=== PATIENT | male | born 1960 | race Caucasian/White ===

== ENCOUNTER 2019-08-02 14:32 | Outpatient (CLI) | payer OTHER, SELFPAY ==
--- NOTE | 2019-08-02 14:23 | DI.RAD_ITS ---
EXAM: XR FINGER LT INDEX CLINICAL HISTORY: eval L index finger volar mass TECHNIQUE: COMPARISON: No exams were available for comparison FINDINGS: Three views were obtained. There is an apparent soft tissue mass or swelling on the volar aspect of the index finger at the level of the middle phalanx. No underlying bony abnormality seen. No calcif ication seen. Additional evaluation with MRI may be indicated if there is clinical suspicion of a mass. IMPRESSION:
== END 2019-08-02 14:52 ==
PROVIDERS: PCP Nurse Practitioner Family; Visit Provider Student in an Organized Health Care Education/Training Program
DX: R22.32 Localized swelling, mass and lump, left upper limb (principal); M79.89 Other specified soft tissue disorders
CPT/HCPCS: 73140

== ENCOUNTER 2019-08-17 08:44 | Day surgery (SDC) | payer OTHER, SELFPAY ==
[2019-08-17 08:58] VITALS: BP 136/92; PULSE 73; RESP 16; TEMP 36.5; O2SAT 95
[2019-08-17] MEDS: Sodium Bicarbonate 50 MEQ/50 ML SYR (11:14)
[2019-08-17] MEDS: Lidocaine 1% Pres-Free 5 ML VIAL (11:14)
--- NOTE | 2019-08-17 11:20 | SKI_PTH ---
PATIENT: Sanchez Osborn LOC: [facility] U#:[id number] AGE/SX: 58/M ROOM: RE08/17/[address]: Maximiliano New MD : 1960 BED: DIS: 08/17/2019 SPEC #: [id number] RECD: 08/17/19 12:34 STATUS: [place] REQ #: [id number] LON: 08/17/19 11:[address]: Maximiliano New DEPT: Surgical Specimen RECD BY: Stefany Alatorre ENTERED: 08/17/19 12:35 SP TYPE: SKI OT DR: Jenniffer Gill Tissues: 1 - SKIN BIOPSY(SHAVE/PUNCH) Procedures: GROSS AND MICRO LEVEL 3 Comments: [id number]
--- NOTE | 2019-08-17 11:35 | W.PM.DSUDISC ---
Discharge Plan Disposition Patient Disposition: HOME Condition: Good Discharge Details Reason For Visit: Left Index Finger Mass Attending Provider: Maximiliano New Primary Care Provider: Jenniffer Gill Home Meds and New Rx's Prescriptions: New hydrocodone-acetaminophen 5-325 mg tablet 1 tab PO Q8H PRN PRN (Reason: pain) Qty: 3 RF: 0 acetaminophen 500 mg tablet 1,000 mg PO Q8H PRN (Reason: pain) Qty: 60 RF: 3 ibuprofen 600 mg tablet 600 mg PO TID PRNQty: 30 RF: 3 Continued aspirin [Aspir-81] 81 MG tablet,delayed release (DR/EC) 81 mg PO DAILY RF: 0 lisinopril 10 MG tablet 15 mg PO DAILY RF: 0 pravastatin 10 MG tablet 10 mg PO DAILY RF: 0 cholecalciferol (vitamin D3) [Vitamin D3] 2,000 unit Tablet 1,000 unit PO DAILY RF: 0 Discharge Instructions Additional Instructions: Activity: You may use your fingers for light activity but avoid direct contact to the index finger. You should limit any excessive motion or forceful gripping with the index finger until the sutures have been removed. Dressings: You should keep the initial surgical dressing in place for at least 2 days. You may remove your dressings and get the wound wet after 2 days. You should keep the dressings and the wound clean at all times. You can replace the initial dressing with light gauze or a bandaid. It is not uncommon to see some bleeding on the initial dressing. Medications: - You should take Tylenol and Ibuprofen around the clock as prescribed or per practice professional's recommendations. - You have Hydrocodone prescribed for breakthrough pain control. Take only as needed and limit use as much as possible. This may cause constipation. Follow-up: 7-10 days for wound check and suture removal. Referrals: Maximiliano New MD [ [facility] STAFF PHYSICIAN] - Activity:: Elevate Remove Dressings/Wound Care:: 48 hours Shower/Bathe:: 48 hours Diet:: As Tolerated Discharge Orders Discharge Orders: Discharge Order (Routine); Ordered 08/17/19 Ordered By: Maximiliano New DS: Diagnosis Discharge Diagnosis (1) Finger mass, left: Status: Acute
--- NOTE | 2019-08-18 19:57 | W.PM.OP ---
Date of service: 08/17/19 Time of Service: 14:58 Operative Note Operative Note DATE OF PROCEDURE: 08/17/19 PRE-OP DIAGNOSIS: Left Index Finger Mass POST-OP DIAGNOSIS: same PROCEDURE: Excisional Biopsy of Left Index Finger Mass SURGEON: Maximiliano New ANESTHESIA: local ESTIMATED BLOOD LOSS: 0 PATHOLOGY: none sent COMPLICATIONS: None Patient was transported to: same day Patient's condition: stable Indications: I have seen Sanchez in clinic for a mass of the palmar left index finger. It continues to interfere with daily activities and making a fist and he desired it removed. I discussed excisional biopsy with the patient. I reviewed the risks of the procedure to include, but not limited to, bleeding, infection, pain, stiffness, need for repeat surgery, damage to nerves or vessels. Despite these risks, the patient elected to proceed. Findings: There was a well encapsulated mass palmar to the tendon without any aggressive features. Preliminarily appears like an epidermoid cyst. Procedure Description: Sanchez was greeted in the preoperative holding area where the correct side was identified and marked. The consent was reviewed with the patient and signed. All questions were answered. Sanchez was taken back to the operating room. The patient was placed into the supine position on the operating room table with the left arm on an arm board. All bony prominences were well padded. No prophylactic antibiotics were administered since this was a clean, elective hand surgical case. The left arm was then prepped with Chloraprep and draped in a standard fashion with stockinette and extremity drape. A timeout to confirm correct identity, side and site, procedure, allergies, anesthesia, and medical concerns was performed. The surgical site was marked as a longitudinal incision angled from PIP to DIP flexion crease directly over the mass of the involved digit. The finger was then anesthetized with 1% Lidocaine buffered with sodium bicarbonate. The patient tolerated this well and once the anesthetic had setup, the procedure began. An incision was made through skin only, approximately 1.5cm. The deep tissues were dissected bluntly. The cyst was evident at this point. There is a clear white membrane. This was dissected out with minimal effort was able to be expressed from the wound. There is no notable attachments to any of the surrounding tissues. There is a small amount of white chalky material within it, indicative of an epidermoid cyst. The wound was then irrigated and the skin was closed with a 4-0 Nylon. This was dressed with tube gauze dressing. The patient tolerated the procedure well and was returned to the Same Day Surgery area in a stable condition suffering no known complication. The mass was sent to pathology for evaluation.
== END 2019-08-17 11:50 | disposition home or self-care (01) ==
PROVIDERS: PCP Nurse Practitioner Family; Visit Provider Student in an Organized Health Care Education/Training Program
PROC: (CPT 11422; principal; 2019-08-17 11:15)
DX: L72.0 Epidermal cyst (principal)
CPT/HCPCS: 11422; 88304; 88305

== ENCOUNTER 2020-02-08 14:10 | Outpatient (REF) | payer OTHER, SELFPAY ==
[2020-02-10 19:20] LABS: SARS-CoV-2 RNA Undetected (Undetected); SARS-CoV-2 Specimen Source Nasopharynx
== END 2020-02-08 14:30 ==
LOC: NCHCN 14:10
PROVIDERS: PCP Nurse Practitioner Family; Visit Provider Nurse Practitioner Family
DX: Z11.59 Encounter for screening for other viral diseases (principal)
CPT/HCPCS: U0003

== ENCOUNTER 2020-02-11 11:28 | Outpatient (REF) | payer OTHER, SELFPAY ==
[2020-02-11 19:45] LABS: ALT 45 U/L (16-63); AST 25 U/L (15-37); Albumin 4.5 g/dL (3.4-5.0); Alkaline Phosphatase 53 U/L (46-116); Anion Gap 11.1 mmol/L (3-11); BUN 25 mg/dL (7-18); Bilirubin, Total 0.6 mg/dL (0.2-1.0); CO2 23.9 mmol/L (21.0-32.0); CREATININE 1.18 mg/dL (0.70-1.30); Calcium 9.1 mg/dL (8.5-10.1); Calculated LDL 104 mg/dL (<100); Chloride 105 mmol/L (98-107); Cholesterol 175 mg/dL (<200); Glucose 107 mg/dL (74-106); HDL Cholesterol 53 mg/dL (40-60); Potassium 3.9 mmol/L (3.5-5.1); Sodium 140 mmol/L (136-145); Total Protein 7.4 g/dL (6.4-8.2); Triglyceride 92 mg/dL (<150)
== END 2020-02-11 11:48 ==
LOC: NCHCN 11:28
PROVIDERS: PCP Nurse Practitioner Family; Visit Provider Nurse Practitioner Family
DX: E55.9 Vitamin D deficiency, unspecified (principal); E78.00 Pure hypercholesterolemia, unspecified; I10 Essential (primary) hypertension; Z00.00 Encounter for general adult medical examination without abnormal findings
CPT/HCPCS: 80053; 80061

== ENCOUNTER 2020-02-21 09:59 | Outpatient (REF) | payer OTHER, SELFPAY ==
[2020-02-22 17:39] LABS: PSA, Screening 0.6 ng/mL (0.0-3.5)
[2020-02-28 12:08] LABS: Testosterone, Free 13.7 ng/dL (3.87-14.7); Testosterone, Total 474 ng/dL (240-950)
== END 2020-02-21 10:19 ==
LOC: NCHCN 09:59
PROVIDERS: PCP Nurse Practitioner Family; Visit Provider Nurse Practitioner Family
DX: N52.9 Male erectile dysfunction, unspecified (principal); Z12.5 Encounter for screening for malignant neoplasm of prostate
CPT/HCPCS: 84153; 84402; 84403

== ENCOUNTER 2020-03-13 12:12 | Outpatient (REF) | payer OTHER, SELFPAY ==
--- NOTE | 2020-03-13 12:02 | SKI_PTH ---
PATIENT: Sanchez Osborn LOC: [facility] U#:[id number] AGE/SX: 59/M ROOM: RE03/13/[address]: Vinh Rice DO : 1960 BED: DIS: 03/13/2020 SPEC #: [id number] RECD: 03/14/20 08:59 STATUS: [place] REQ #: [id number] LON: 03/13/20 12:[address]: Vinh Rice DEPT: Surgical Specimen RECD BY: Jeane Perera ENTERED: 03/14/20 09:01 SP TYPE: SKI OTHR DR: Jenniffer Gill Tissues: 1 - SKIN BIOPSY(SHAVE/PUNCH) Procedures: SKIN LEVEL 4 Comments: [id number]
== END 2020-03-13 12:32 ==
LOC: LBN 12:12
PROVIDERS: PCP Nurse Practitioner Family; Visit Provider Otolaryngology Otolaryngology/Facial Plastic Surgery
DX: L81.4 Other melanin hyperpigmentation (principal); L82.1 Other seborrheic keratosis
CPT/HCPCS: 88305

== ENCOUNTER 2020-11-02 16:51 | Outpatient (REF) | payer OTHER, SELFPAY ==
[2020-11-02 15:50] LABS: HCT 42.8 % (40.0-50.0); HGB 14.7 g/dL (13.5-17.5); MCH 32.1 pg (27.0-33.0); MCHC 34.3 % (32.0-36.0); MCV 93.4 fL (80-95); MPV 11.9 fL (8.0-11.0); Platelet Count 152 10^3/uL (130-400); RBC 4.58 10^6/uL (4.36-5.78); RDW 12.2 % (11.8-14.1); RDW-SD 42.4 fL; WBC 6.02 10^3/uL (4.4-10.8)
[2020-11-02 16:22] LABS: Hemoglobin A1C 5.6 % (<5.7)
[2020-11-02 16:25] LABS: ALT 45 U/L (16-63); AST 22 U/L (15-37); Anion Gap 9.7 mmol/L (3-11); BUN 26 mg/dL (7-18); CO2 27.3 mmol/L (21.0-32.0); CREATININE 1.3 mg/dL (0.70-1.30); Calcium 8.5 mg/dL (8.5-10.1); Calculated LDL 85 mg/dL (<100); Chloride 103 mmol/L (98-107); Cholesterol 170 mg/dL (<200); Glucose 110 mg/dL (74-106); HDL Cholesterol 50 mg/dL (40-60); Potassium 4.1 mmol/L (3.5-5.1); Sodium 140 mmol/L (136-145); TSH 1.78 uIU/mL (0.36-3.74); Triglyceride 178 mg/dL (<150)
[2020-11-02 16:39] LABS: Creatine Kinase 320 U/L (39-308)
== END 2020-11-02 16:52 | disposition home or self-care (01) ==
LOC: NCHCN 16:51
PROVIDERS: PCP Nurse Practitioner Family; Visit Provider Nurse Practitioner Family
DX: R73.03 Prediabetes (principal); I10 Essential (primary) hypertension; R63.5 Abnormal weight gain; E78.00 Pure hypercholesterolemia, unspecified
CPT/HCPCS: 80048; 80061; 82550; 85027; 83036; 84443; 84450; 84460

== ENCOUNTER 2021-05-02 07:53 | Outpatient (REF) | payer OTHER, SELFPAY ==
[2021-05-02 20:29] LABS: Hemoglobin A1C 5.6 % (<5.7)
[2021-05-02 20:30] LABS: Creatine Kinase 312 U/L (39-308)
== END 2021-05-02 07:54 | disposition home or self-care (01) ==
LOC: NCHCN 07:53
PROVIDERS: PCP Nurse Practitioner Family; Visit Provider Nurse Practitioner Family
DX: I10 Essential (primary) hypertension (principal); E78.00 Pure hypercholesterolemia, unspecified; R73.03 Prediabetes
CPT/HCPCS: 82550; 83036

== ENCOUNTER 2022-03-19 15:48 | Outpatient (REF) | payer OTHER, SELFPAY ==
[2022-03-19 15:57] LABS: Anion Gap 9.3 mmol/L (3-11); BUN 24 mg/dL (7-18); CO2 28.7 mmol/L (21.0-32.0); CREATININE 1.2 mg/dL (0.70-1.30); Calcium 9.1 mg/dL (8.5-10.1); Calculated LDL 116 mg/dL (<100); Chloride 102 mmol/L (98-107); Cholesterol 184 mg/dL (<200); Estimated GFR 69.23 (mL/min/1.73m2); Glucose 105 mg/dL (74-106); HDL Cholesterol 52 mg/dL (40-60); Potassium 4.1 mmol/L (3.5-5.1); Sodium 140 mmol/L (136-145); Triglyceride 80 mg/dL (<150)
== END 2022-03-19 15:49 | disposition home or self-care (01) ==
LOC: NCHCN 15:48
PROVIDERS: PCP Nurse Practitioner Family; Visit Provider Nurse Practitioner Family
DX: I10 Essential (primary) hypertension (principal); E78.00 Pure hypercholesterolemia, unspecified; R20.2 Paresthesia of skin
CPT/HCPCS: 80048; 80061

== ENCOUNTER 2023-04-09 09:34 | Outpatient (REF) | payer MEDICAID, SELFPAY ==
[2023-04-09 16:08] LABS: BUN 28 mg/dL (7-18); CREATININE 1.2 mg/dL (0.70-1.30); Calcium 9.1 mg/dL (8.5-10.1); Calculated LDL 123 mg/dL (<100); Chloride 104 mmol/L (98-107); Cholesterol 195 mg/dL (<200); Glucose 110 mg/dL (74-106); HDL Cholesterol 63 mg/dL (40-60); Potassium 4.2 mmol/L (3.5-5.1); Sodium 139 mmol/L (136-145); Triglyceride 45 mg/dL (<150)
[2023-04-09 16:20] LABS: Hemoglobin A1C 5.3 % (<5.7)
== END 2023-04-09 09:35 | disposition home or self-care (01) ==
LOC: NCHCN 09:34
PROVIDERS: PCP Nurse Practitioner Family; Visit Provider Nurse Practitioner Family
DX: R73.03 Prediabetes (principal); I10 Essential (primary) hypertension; E78.00 Pure hypercholesterolemia, unspecified
CPT/HCPCS: 80048; 80061; 83036

== ENCOUNTER 2023-07-30 07:39 | Day surgery (SDC) | payer OTHER, SELFPAY ==
[2023-07-30 08:04] VITALS: BP 136/87; PULSE 75; RESP 16; TEMP 36.5; O2SAT 93
[2023-07-30] MEDS: Lactated Ringers 1,000 ML 80 ML IV (08:34)
--- NOTE | 2023-07-30 08:36 | ANES.PREOP_ITS ---
General Info Date of Service Date Performed: 07/30/23 Height: 5 ft 4 in Weight: 84 kg Body Mass Index (BMI): 31.8 Surgical Procedure: Operation Date: 07/30/23 09:50 Proposed Procedure Side Surgeon miryam Tan MD Meds Allergies and Home Medications Allergies Allergy/AdvReac Type Severity Reaction Status Date / Time No Known Allergies Allergy Verified 07/30/23 08:03 Home Medication Medication Instructions Recorded cholecalciferol (vitamin D3) 50 1,000 unit PO DAILY 08/17/19 mcg (2,000 unit) tablet (Vitamin D3) lisinopril 20 1 tab PO DAILY 07/03/20 mg-hydrochlorothiazide 12.5 mg tablet bimatoprost 0.01 % eye drops 1 drp ophthalmic (eye) DAILY 04/29/23 (Lumigan) fluticasone propionate 50 1 spray intranasal DAILY 04/29/23 mcg/actuation nasal spray,suspension sildenafil 100 mg tablet 100 mg PO DAILY PRN 04/29/23 Current Visit Medications: Current Medications Generic Name Dose Route Start Last Admin Trade Name Freq PRN Reason Stop Dose Admin Ringer's Solution 1,000 mls @ 80 mls/hr 07/30/23 06:00 07/30/23 08:34 IV 08/28/23 23:59 80 mls/hr INFUSION HERBIE Administration IV Miscellaneous Supplies 1 each 07/30/23 06:00 Iv Access IV 08/28/23 23:59 DIRECTED HERBIE Sodium Chloride 0 ml 07/30/23 06:00 Normal Saline Flush 10 Ml Syr IV 08/28/23 23:59 PRN PRN Sodium Chloride 0 ml 07/30/23 06:00 Normal Saline 10 Ml Vial IJ 08/28/23 23:59 DIRECTED PRN Sterile Water 0 ml 07/30/23 06:00 Water,Injection,Sterile 10 Ml Vial IJ 08/28/23 23:59 DIRECTED PRN PFSH Active Problems Active Problems: Problem Status Onset Code Essential tremor G25.0 Carpal tunnel syndrome of left wrist G56.02 Carpal tunnel syndrome of right wrist G56.01 Hypertension, benign I10 Neoplasm of unspecified behavior of bone, soft tissue, and skin D49.2 Epidermoid cyst of finger of left hand L72.0 Finger mass, left R22.32 Medical History Medical History (Updated 07/29/23 @ 12:20 by Preston Saleem) Traumatic intracranial hemorrhage ??? 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 17 but not clear that he had intracranial hemorrhage- I smacked my head off the pavement, and a crushed artery_not required to see neuro History of prediabetes Seasonal allergies Low back pain Obstructive sleep apnea of adult Glaucoma Depression Vitamin D deficiency Melanosis coli Disorder of tendon of biceps Erectile dysfunction Hypercholesterolemia Prediabetes Hypertension Surgical History Surgical History No pertinent past surgical history Tobacco Smoking/Tobacco Use Status: Never Alcohol Alcohol Intake: current Alcohol intake frequency: 0-2 drinks per day Alcohol type: wine Substance Use Substance use: Occasionally Substance use type: marijuana Vital Signs and Lab Results Vital Signs Most Recent Vital Signs in EMR: Most Recent Vital Signs Temp Pulse Resp BP Pulse Ox 36.5 C 75 16 136/87 93 07/30/23 08:04 07/30/23 08:04 07/30/23 08:04 07/30/23 08:04 07/30/23 08:04 Lab Results Blood Type / Crossmatch: No Data to Display Complete Blood Count: No Data to Display Complete Metabolic Panel: No Data to Display Liver Function Panel: No Data to Display Coagulation Panel: No Data to Display Cardiac Panel: No Data to Display Arterial Blood Gas: No Data to Display Venous Blood Gas: No Data to Display Pancreas Panel: No Data to Display Thyroid Panel: No Data to Display Infectious Disease: No Data to Display Blood Cultures: No Data to Display Toxicology Panel: No Data to Display Anesthesia Assessment and Plan Anesthesia History Personal History: No History of Anesthesia Complications Family History: No Family History of Anesthesia Complications Exercise Tolerance Exercise Tolerance: Metabolic Equivalents>4 Pertinent Negatives Pertinent Negatives: No Symptoms of GERD, No Major Cardiovascular Symptoms or Complaints and No Major Pulmonary Symptoms or Complaints Cardiac & Pulmonary Exam Cardiac Exam: Normal S1/S2 Heart Sounds Pulmonary Exam: Clear Bilateral Breath Sounds Implantable Cardiac Device Does patient have a Pacemaker or an ICD?: No Airway Exam Known Difficult Airway: No Mallampati Class: 1 Mouth Opening: Normal (> 3cm) Thyromental Distance: Greater than 3 cm Neck Range of Motion: Full ROM Neck Circumference: Normal Teeth Condition: Normal Dentition ASA Classification ASA Score: ASA 2 Emergency Case?: No NPO Status NPO Status: NPO Clears >2 hours, Solids >8 hours Anesthesia Plan Resuscitation Status: Full Code Anesthesia Technique: General Anesthesia Airway Planned: Natural Airway Monitors Used: Standard Monitors
[2023-07-30 08:40] VITALS: BMI 31.8
--- NOTE | 2023-07-30 09:29 | BOWEL_PTH ---
PATIENT: Sanchez Osborn LOC: [facility] U#:[id number] AGE/SX: 62/M ROOM: RE07/30/[address]: Mp Tan : 1960 BED: DIS: 07/30/2023 SPEC #: [id number] RECD: 07/30/23 12:45 STATUS: [place] RE #: [id number] LON: 07/30/23 09:[address]: Mp Tan DEPT: Surgical Specimen RECD BY: Stefany Alatorre ENTERED: 07/30/23 12:45 SP TYPE: Bowel OTHR DR: Jenniffer Gill Tissues: 1 - BIOPSY BOWEL Procedures: GROSS AND MICRO LEVEL 4 Comments: [id number]
[2023-07-30 09:35] VITALS: BP 122/86; PULSE 69; RESP 16; TEMP 36.6; O2SAT 95
--- NOTE | 2023-07-30 10:02 | W.COLOREPORT ---
Date of service: 07/30/23 Time of Service: 09:30 Colonoscopy Report Findings: PROCEDURES PERFORMED: 1. Colonoscopy with cold forceps polypectomy PREOPERATIVE DIAGNOSIS: Surveillance colonoscopy POSTOPERATIVE DIAGNOSIS: Isolated rectal polyp SURGEON: Immanuel Tan MD INDICATION for procedure: The patient is a 62-year-old man without any symptoms. He has had a prior colonoscopy 10 years ago that was normal. No family history of colon cancer. FINDINGS: In the proximal rectum, a small 2-3 mm sessile polyp was removed with cold forceps technique. It may be hyperplastic but it did look like it could be adenomatous. There were no other disease processes or problems found. SURVEILLANCE interval/FOLLOW-UP: 3 - 10 years. If sessile serrate or villous histology, then in 3 years. Otherwise, 7-10 year followup is acceptable for either hyperplastic or even simple tubular adenoma findings. SPECIMENS: yes EBL: Minimal COMPLICATIONS: None QUALITY of prep: Excellent Procedure in detail: The patient gave written consent and was in agreement with the indications, the potential risks as well as the benefits of the procedure. They taken to the endoscopy suite and laid in the left lateral decubitus position. A timeout was performed and anesthesia was administered which was tolerated well. I started the procedure. Digital rectal and visual examination was performed and grossly within normal limits. A well-lubricated flexible colonoscope was then introduced and passed without any notable difficulty all the way to the cecum identified by the ileocecal valve and the appendiceal orifice. The scope was then slowly withdrawn with the above-noted findings. The patient tolerated the procedure well and was taken to the PACU in hemodynamically stable condition.
--- NOTE | 2023-07-30 10:02 | W.PM.DSUDISC ---
Date of service: 07/30/23 Time of Service: 10:02 Discharge Plan Disposition Patient Disposition: Home Condition: Good Discharge Details Attending Provider: Mp Tan Primary Care Provider: Jenniffer Gill Home Meds and New Rx's Prescriptions: No Action lisinopril-hydrochlorothiazide 20-12.5 mg tablet 1 tab PO DAILY Lumigan 0.01 % drops 1 drp ophthalmic (eye) DAILY fluticasone propionate 50 mcg/actuation spray,suspension 1 spray intranasal DAILY Rx Instructions: administer into each nostril sildenafil 100 mg tablet 100 mg PO DAILY PRN Rx Instructions: administer 30 minutes to 4 hours before activity cholecalciferol (vitamin D3) [Vitamin D3] 2,000 unit Tablet 1,000 unit PO DAILY Discharge Instructions Additional Instructions: FINDINGS: A small polyp was found and removed today. It is nothing to worry about. You will get called with pathology results in a couple weeks and probably you need to do another colonoscopy in 7 to 10 years. Everything else looked healthy. Stand Alone Forms: Rafael WILLIAM) Activity:: Activity as Tolerated Diet:: As Tolerated
[2023-07-30 10:18] VITALS: BP 112/75; PULSE 60; RESP 18; TEMP 36.2; O2SAT 97
--- NOTE | 2023-07-30 10:35 | W.ANESPOSTOP ---
Postoperative Evaluation Date, Time and Location Date Performed: 07/30/23 Time Performed: 09:41 Patient Location: Day Surgery Unit Vital Signs Most Recent Imported Vital Signs: Most Recent Vital Signs Temp Pulse Resp BP Pulse Ox 36.2 C L 60 18 112/75 97 07/30/23 10:18 07/30/23 10:18 07/30/23 10:18 07/30/23 10:18 07/30/23 10:18 Pain Score Most Recent Pain Score: Most Recent Pain Score Pain Level 0 07/30/23 10:18 Assessment Mental Status: Awake (Alert & Oriented to Patient Baseline) Airway and Respiratory Function: Patent airway with normal (patient baseline) respiratory exam Cardiovascular Function: Hemodynamically Stable Hydration Status: Adequately Hydrated Nausea & Vomiting: No Nausea or Vomiting Pain: Pt. Denies Any Pain Peripheral Nerve Block: Patient did not receive a nerve block
== END 2023-07-30 10:25 | disposition home or self-care (01) ==
PROVIDERS: PCP Nurse Practitioner Family; Visit Provider Student in an Organized Health Care Education/Training Program
PROC: 0DJD8ZZ Inspection of Lower Intestinal Tract, Via Natural or Artificial Opening Endoscopic (ICD-10-PCS; CPT 45378; principal; 2023-07-30 09:45)
DX: Z12.11 Encounter for screening for malignant neoplasm of colon (principal); K63.5 Polyp of colon; I10 Essential (primary) hypertension
CPT/HCPCS: 45380; 123; 88305; 00123; J2704

== ENCOUNTER 2023-10-08 06:20 | Day surgery (SDC) | payer OTHER, SELFPAY ==
[2023-10-08 06:29] VITALS: BP 140/96; PULSE 66; RESP 18; TEMP 36.5; O2SAT 94
[2023-10-08] MEDS: Lactated Ringers 1,000 ML 80 ML IV (06:47)
--- NOTE | 2023-10-08 06:49 | ANES.PREOP_ITS ---
General Info Date of Service Date Performed: 10/08/23 Height: 5 ft 4 in Weight: 92.4 kg Body Mass Index (BMI): 34.9 Surgical Procedure: Operation Date: 10/08/23 07:40 Proposed Procedure Side Surgeon p Wrist ECTR Left Maxmiiliano New MD Meds Allergies and Home Medications Allergies Allergy/AdvReac Type Severity Reaction Status Date / Time No Known Allergies Allergy Verified 10/08/23 06:27 Home Medication Medication Instructions Recorded cholecalciferol (vitamin D3) 50 1,000 unit PO DAILY 08/17/19 mcg (2,000 unit) tablet (Vitamin D3) lisinopril 20 1 tab PO DAILY 07/03/20 mg-hydrochlorothiazide 12.5 mg tablet bimatoprost 0.01 % eye drops 1 drp ophthalmic (eye) DAILY 04/29/23 ([place]umigan) fluticasone propionate 50 1 spray intranasal DAILY 04/29/23 mcg/actuation nasal spray,suspension sildenafil 100 mg tablet 100 mg PO DAILY PRN 04/29/23 acetaminophen 500 mg tablet 1,000 mg (2 x 500 mg) PO TID #90 10/08/23 tabs hydrocodone 5 mg-acetaminophen 325 1 tab PO Q6H PRN pain #3 tabs 10/08/23 mg tablet ibuprofen 600 mg tablet 600 mg PO TID PRN pain #90 tabs 10/08/23 Current Visit Medications: Current Medications Generic Name Dose Route Start Last Admin Trade Name Freq PRN Reason Stop Dose Admin Ringer's Solution 1,000 mls @ 80 mls/hr 10/08/23 06:00 10/08/23 06:47 IV 10/08/23 23:59 80 mls/hr INFUSION HERBIE Administration Cefazolin Sodium/Dextrose 2 gm in 50 mls @ 100 mls/hr 10/08/23 06:00 Ancef Duplex IVPB 10/08/23 23:59 PREOP HERBIE IV Miscellaneous Supplies 1 each 10/08/23 06:00 Iv Access IV 10/08/23 23:59 DIRECTED HERBIE Sodium Chloride 0 ml 10/08/23 06:00 Normal Saline Flush 10 Ml Syr IV 10/08/23 23:59 PRN PRN Sodium Chloride 0 ml 10/08/23 06:00 Normal Saline 10 Ml Vial IJ 10/08/23 23:59 DIRECTED PRN Sterile Water 0 ml 10/08/23 06:00 Water,Injection,Sterile 10 Ml Vial IJ 10/08/23 23:59 DIRECTED PRN PFSH Active Problems Active Problems: Problem Status Onset Code Essential tremor G25.0 Carpal tunnel syndrome of left wrist G56.02 Carpal tunnel syndrome of right wrist G56.01 Hypertension, benign I10 Neoplasm of unspecified behavior of bone, soft tissue, and skin D49.2 Epidermoid cyst of finger of left hand L72.0 Finger mass, left R22.32 Medical History Medical History Hyperplastic colon polyp (~07/2023) Traumatic intracranial hemorrhage ??? 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 17 but not clear that he had intracranial hemorrhage- I smacked my head off the pavement, and a crushed artery_not required to see neuro History of prediabetes Seasonal allergies Low back pain Obstructive sleep apnea of adult Glaucoma Depression Vitamin D deficiency Melanosis coli Disorder of tendon of biceps Erectile dysfunction Hypercholesterolemia Prediabetes Hypertension Surgical History Surgical History (Updated 10/08/23 @ 07:11 by VICTOR M Rodriguez) History of colonoscopy (~07/2023) path sent No pertinent past surgical history Tobacco Smoking/Tobacco Use Status: Never Alcohol Alcohol Intake: current Alcohol intake frequency: 0-2 drinks per day Alcohol type: wine Substance Use Substance use: Rarely Substance use type: marijuana Vital Signs and Lab Results Vital Signs Most Recent Vital Signs in EMR: Most Recent Vital Signs Temp Pulse Resp BP Pulse Ox 36.5 C 66 18 140/96 H 94 10/08/23 06:29 10/08/23 06:29 10/08/23 06:29 10/08/23 06:29 10/08/23 06:29 Lab Results Blood Type / Crossmatch: No Data to Display Complete Blood Count: No Data to Display Complete Metabolic Panel: No Data to Display Liver Function Panel: No Data to Display Coagulation Panel: No Data to Display Cardiac Panel: No Data to Display Arterial Blood Gas: No Data to Display Venous Blood Gas: No Data to Display Pancreas Panel: No Data to Display Thyroid Panel: No Data to Display Infectious Disease: No Data to Display Blood Cultures: No Data to Display Toxicology Panel: No Data to Display Anesthesia Assessment and Plan Anesthesia History Personal History: No History of Anesthesia Complications Family History: No Family History of Anesthesia Complications Exercise Tolerance Exercise Tolerance: Metabolic Equivalents>4 Pertinent Negatives Pertinent Negatives: No Symptoms of GERD Cardiac & Pulmonary Exam Cardiac Exam: Normal S1/S2 Heart Sounds Pulmonary Exam: Clear Bilateral Breath Sounds Implantable Cardiac Device Does patient have a Pacemaker or an ICD?: No Airway Exam Known Difficult Airway: No Mallampati Class: 2 Mouth Opening: Normal (> 3cm) Thyromental Distance: Greater than 3 cm Neck Range of Motion: Full ROM Neck Circumference: Normal Teeth Condition: Normal Dentition ASA Classification ASA Score: ASA 2 Emergency Case?: No NPO Status NPO Status: NPO Clears >2 hours, Solids >8 hours Anesthesia Plan Resuscitation Status: Full Code Anesthesia Technique: General Anesthesia Airway Planned: Natural Airway Monitors Used: Standard Monitors
[2023-10-08 06:52] VITALS: BMI 34.9
--- NOTE | 2023-10-08 07:10 | PDOC.DSDIS_ITS ---
Date of service: 10/08/23 Time of Service: 07:11 Discharge Plan Disposition Patient Disposition: Home Condition: Good Discharge Details Reason For Visit: L ECTR Attending Provider: Maximiliano New Primary Care Provider: Jenniffer Gill Home Meds and New Rx's Prescriptions: New hydrocodone-acetaminophen 5-325 mg tablet 1 tab PO Q6H PRN (Reason: pain) Qty: 3 0RF acetaminophen 500 mg tablet 1,000 mg PO TID Qty: 90 0RF ibuprofen 600 mg tablet 600 mg PO TID PRN (Reason: pain) Qty: 90 0RF Continued lisinopril-hydrochlorothiazide 20-12.5 mg tablet 1 tab PO DAILY Lumigan 0.01 % drops 1 drp ophthalmic (eye) DAILY fluticasone propionate 50 mcg/actuation spray,suspension 1 spray intranasal DAILY Rx Instructions: administer into each nostril sildenafil 100 mg tablet 100 mg PO DAILY PRN Rx Instructions: administer 30 minutes to 4 hours before activity cholecalciferol (vitamin D3) [Vitamin D3] 2,000 unit Tablet 1,000 unit PO DAILY Discharge Instructions Stand Alone Forms: Shaq Xie Tunnel Release Referrals: Maximiliano New MD [ [facility] STAFF PHYSICIAN] - Activity:: Activity as Tolerated Remove Dressings/Wound Care:: 48 hours Shower/Bathe:: 48 hours Diet:: As Tolerated Discharge Orders Discharge Orders: Discharge Order (Routine); Ordered 10/08/23 Ordered By: Dale Stafford DS: Diagnosis Discharge Diagnosis (1) Carpal tunnel syndrome of left wrist: Status: Acute
--- NOTE | 2023-10-08 07:18 | W.PREOPHP ---
Assessment and Plan Assessment and plan (1) Carpal tunnel syndrome of left wrist: Status: Acute Assessment and plan: Sanchez is a 62-year-old who has bilateral carpal tunnel syndrome. After a review of clinical history, exam findings, carpal tunnel syndrome is the most reasonable diagnosis. We discussed possible treatment options to include nighttime splinting, anti-inflammatories, carpal tunnel injections, and eventually surgery. Due to the persistence of symptoms and their daily limitations with normal function, I offered a carpal tunnel release. I discussed the technical details of carpal tunnel release and that I perform an endoscopic release, but would make a larger, open, incision if necessary for visualization. I discussed the risks of the procedure to include, but not limited to, bleeding, infection, palmar pain, stiffness, damage to nerves, damage to vessels, damage to tendons, weakness, recurrence, and incomplete release. Given these risks, Sanchez desires to proceed. We will start with the left side today follow the right side the next week or 2. (2) Carpal tunnel syndrome of right wrist: Status: Acute History of Present Illness History of Present Illness Chief Complaint: Bilateral Carpal Tunnel Syndrome Narrative: Sanchez is a 62-year-old who presents today for bilateral carpal tunnel syndrome. Please see the previous office note for complete detailed history. He is here for carpal tunnel release starting with the left side today to be followed by the right side in the next week or so. He denies any changes to his health history. No chest pain or shortness of breath. He continues have numbness and tingling about both hands. Review of Systems All systems reviewed & are unremarkable except as noted in HPI and below PFSH All Active Problems Essential tremor (Acute) Carpal tunnel syndrome of left wrist (Acute) S/P ECTR: 10/08/2023 Carpal tunnel syndrome of right wrist (Acute) Hypertension, benign (Acute) Neoplasm of unspecified behavior of bone, soft tissue, and skin (Acute) Epidermoid cyst of finger of left hand (Acute) s/p excision from LIF Finger mass, left (Acute) Medical History Hyperplastic colon polyp (~07/2023) Traumatic intracranial hemorrhage ??? 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 17 but not clear that he had intracranial hemorrhage-I smacked my head off the pavement, and a crushed artery_not required to see neuro History of prediabetes Seasonal allergies Low back pain Obstructive sleep apnea of adult Glaucoma Depression Vitamin D deficiency Melanosis coli Disorder of tendon of biceps Erectile dysfunction Hypercholesterolemia Prediabetes Hypertension Surgical History History of colonoscopy (~07/2023) path sent No pertinent past surgical history Social History Smoking/Tobacco Use Status: Never Smoking risk assessment performed?: Yes Alcohol Intake: current Alcohol Intake frequency: 0-2 drinks per day Alcohol type: wine Drug use: Rarely Substance use type: marijuana Household members: spouse Housing: house Number of Children: 1 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 Current gender identity: male Do you feel safe at home: Yes Do you feel safe in your relationship?: Yes Meds Allergies and Home Medications Allergies Allergy/AdvReac Type Severity Reaction Status Date / Time No Known Allergies Allergy Verified 10/08/23 06:27 Home Medications Medication Instructions Recorded Confirmed Type cholecalciferol (vitamin D3) 50 1,000 unit PO DAILY 08/17/19 10/08/23 History mcg (2,000 unit) tablet (Vitamin D3) lisinopril 20 1 tab PO DAILY 07/03/20 10/08/23 History mg-hydrochlorothiazide 12.5 mg tablet bimatoprost 0.01 % eye drops 1 drp ophthalmic (eye) DAILY 04/29/23 10/08/23 History (Lumigan) fluticasone propionate 50 1 spray intranasal DAILY 04/29/23 10/08/23 History mcg/actuation nasal spray,suspension sildenafil 100 mg tablet 100 mg PO DAILY PRN 04/29/23 10/08/23 History acetaminophen 500 mg tablet 1,000 mg (2 x 500 mg) PO TID #90 10/08/23 Rx tabs hydrocodone 5 mg-acetaminophen 325 1 tab PO Q6H PRN pain #3 tabs 10/08/23 Rx mg tablet ibuprofen 600 mg tablet 600 mg PO TID PRN pain #90 tabs 10/08/23 Rx Exam Const General: cooperative, healthy appearing, comfortable and no acute distress Resp Auscultation: clear to auscultation bilaterally Cardio Rate: regular rate Rhythm: regular rhythm Results Last Vital Signs Temp 36.5 C 10/08/23 06:29 Pulse 66 10/08/23 06:29 Resp 18 10/08/23 06:29 BP 140/96 H 10/08/23 06:29 Pulse Ox 94 10/08/23 06:29
[2023-10-08] MEDS: ceFAZolin 2 GM/50 ML BAG IVPB (07:32)
[2023-10-08] MEDS: Lidocaine 1% Multi-Dose W/EPI 1/100,000 50 ML VIAL (07:34)
[2023-10-08 07:55] VITALS: BP 107/62; PULSE 70; RESP 14; TEMP 36.6; O2SAT 96
[2023-10-08 08:25] VITALS: BP 126/88; PULSE 60; RESP 16; TEMP 36.6; O2SAT 96
--- NOTE | 2023-10-08 08:41 | W.ANESPOSTOP ---
Postoperative Evaluation Date, Time and Location Date Performed: 10/08/23 Time Performed: 07:55 Patient Location: Day Surgery Unit Vital Signs Most Recent Imported Vital Signs: Most Recent Vital Signs Temp Pulse Resp BP Pulse Ox 36.6 C 60 16 126/88 96 10/08/23 08:25 10/08/23 08:25 10/08/23 08:25 10/08/23 08:25 10/08/23 08:25 Pain Score Most Recent Pain Score: Most Recent Pain Score Pain Level 0 10/08/23 08:25 Assessment Mental Status: Arousable with meaningful communication Airway and Respiratory Function: Patent airway with normal (patient baseline) respiratory exam Cardiovascular Function: Hemodynamically Stable Hydration Status: Adequately Hydrated Nausea & Vomiting: No Nausea or Vomiting Pain: Pt. Denies Any Pain Peripheral Nerve Block: Patient did not receive a nerve block
--- NOTE | 2023-10-08 08:59 | ROE_ITS ---
Date of service: 10/08/23 Time of Service: 07:30 Operative Note Operative Note PRE-OP DIAGNOSIS: Left Carpal Tunnel Syndrome POST-OP DIAGNOSIS: same PROCEDURE: Left Endoscopic Carpal Tunnel Release SURGEON: Maximiliano New ANESTHESIA TYPE: General:No Airway Refer to Anesthesia Record ESTIMATED BLOOD LOSS: 0 PATHOLOGY: none sent TOURNIQUET TIME: 8 COMPLICATIONS: None Patient was transported to: same day Patient's condition: stable Indications: I have seen Sanchez in clinic for symptoms of carpal tunnel syndrome. The numbness, tingling, and pain limited function. Clinical exam findings with nerve conduction tests confirmed the diagnosis of carpal tunnel syndrome. Nonoperative measures such as bracing, time, activity modifications had been tried but disability and pain persisted. I discussed carpal tunnel release with the patient. I reviewed the risks of the procedure to include, but not limited to, bleeding, infection, pain, stiffness, incomplete release, damage to nerves or vessels, persistent numbness, recurrence. Despite these risks, the patient elected to proceed. Findings: There was tightened carpal tunnel. This was dilated and released successfully with the endoscopic with increased space within the tunnel but visualization was more challenging due to fat. The antebrachial fascia was released proximally freeing the median nerve at the wrist. Procedure Description: Sanchez was greeted in the preoperative holding area where the correct side was identified and marked. The consent was reviewed with the patient and signed. The history and physical was updated. All questions were answered. He was taken back to the operating room. The patient was placed into the supine position on the operating room table with the left arm on an arm board. A nonsterile tourniquet was placed high onto the arm. All bony prominences were well padded. Prophylactic antibiotics in the form of Cefazolin were administered. The left arm was then prepped with Chloraprep and draped in a standard fashion with stockinette and extremity drape. A timeout to confirm correct identity, side and site, procedure, allergies, anesthesia, and medical concerns was performed. The surgical site was marked in the volar wrist creases in line with the radial border of the fourth ray. This area was anesthetized with approximately 6cc of 1% Lidocaine. The limb was then exsanguinated with an Esmarch. The skin was incised with a 15 blade, approximately 1cm. The skin only was cut and the deeper tissue was dissected bluntly with a tenotomy scissor, avoiding passing nerve and venous structures. The fascia was penetrated and opened bluntly. A two-prong skin hook was placed under this proximal fascial edge. A series of hamate finders were used to identify and dilate the carpal tunnel. Synovial elevator was used to free synovial attachments to the underside of the transverse carpal ligament. My thumb was kept in the palm to eugene the distal extent of the carpal tunnel and correctly position the hand. The Microaire endoscope was inserted without difficulty and without resistance. THere was some notable fat which preclude visualization. I removed it with the scope and with pickups. Then, after improved visualization, horizontally running fibers of the transverse carpal ligament (TCL) were identified. The distal extent of the TCL was visualized and the end of the scope palpated with the thumb. The blade was elevated and withdrawn from distal to proximal. The TCL was split into two flaps. The endoscope was reinserted to confirm complete release and any remnant ligament was incised. The scope was withdrawn and the proximal aspect of the carpal tunnel was grossly inspected and appeared release with the median nerve visible. The antebrachial fascia at the level of the wrist was then freed from the o verlying skin and then the underlying median nerve with blunt dissection. This was transected longitudinally for about 3cm proximal to the wrist incision. The wound was then irrigated with easy flow of irrigant distally and proximally. The incision was closed with a single 4-0 Nylon suture. The wound was dressed with Xeroform, Gauze, Kerlix and Brian. The tourniquet was deflated with the initial dressing and held with some pressure. Blood flow returned easily to all digits with capillary refill less than 2 seconds. The patient tolerated the procedure well and was returned to the Same Day Surgery area in a stable condition suffering no known complication.
== END 2023-10-08 08:45 | disposition home or self-care (01) ==
PROVIDERS: PCP Nurse Practitioner Family; Visit Provider Student in an Organized Health Care Education/Training Program
PROC: 01N54ZZ Release Median Nerve, Percutaneous Endoscopic Approach (ICD-10-PCS; CPT 29848; principal; 2023-10-08 07:30)
DX: G56.02 Carpal tunnel syndrome, left upper limb (principal); G25.0 Essential tremor; R73.03 Prediabetes; I10 Essential (primary) hypertension; E78.00 Pure hypercholesterolemia, unspecified
CPT/HCPCS: 29848; J0690; J2001; J2004; J2704

== ENCOUNTER 2023-10-15 06:27 | Day surgery (SDC) | payer OTHER, SELFPAY ==
[2023-10-15 06:50] VITALS: BP 146/93; PULSE 69; RESP 16; TEMP 36.5; O2SAT 96
[2023-10-15] MEDS: Lactated Ringers 1,000 ML 80 ML IV (06:56)
--- NOTE | 2023-10-15 07:13 | W.PM.DSUDISC ---
Date of service: 10/15/23 Time of Service: 07:13 Discharge Plan Disposition Patient Disposition: Home Condition: Good Discharge Details Reason For Visit: R ECTR Attending Provider: Maximiliano New Primary Care Provider: Jenniffer Gill Home Meds and New Rx's Prescriptions: Continued lisinopril-hydrochlorothiazide 20-12.5 mg tablet 1 tab PO DAILY Lumigan 0.01 % drops 1 drp ophthalmic (eye) DAILY fluticasone propionate 50 mcg/actuation spray,suspension 1 spray intranasal DAILY Rx Instructions: administer into each nostril sildenafil 100 mg tablet 100 mg PO DAILY PRN Rx Instructions: administer 30 minutes to 4 hours before activity cholecalciferol (vitamin D3) [Vitamin D3] 2,000 unit Tablet 1,000 unit PO DAILY hydrocodone-acetaminophen 5-325 mg tablet 1 tab PO Q6H PRN (Reason: pain) Qty: 3 0RF acetaminophen 500 mg tablet 1,000 mg PO TID Qty: 90 0RF ibuprofen 600 mg tablet 600 mg PO TID PRN (Reason: pain) Qty: 90 0RF Discharge Instructions Stand Alone Forms: Shaq Xie Tunnel Release Referrals: Maximiliano New MD [ [facility] STAFF PHYSICIAN] - Activity:: Activity as Tolerated Remove Dressings/Wound Care:: 48 hours Shower/Bathe:: 48 hours Diet:: As Tolerated Discharge Orders Discharge Orders: Discharge Order (Routine); Ordered 10/15/23 Ordered By: Dale Stafford DS: Diagnosis Discharge Diagnosis (1) Carpal tunnel syndrome of right wrist: Status: Acute
--- NOTE | 2023-10-15 07:14 | ANES.PREOP_ITS ---
General Info Date of Service Date Performed: 10/15/23 Height: 5 ft 4 in Weight: 90.9 kg Body Mass Index (BMI): 34.4 Surgical Procedure: Operation Date: 10/15/23 07:40 Proposed Procedure Side Surgeon p Wrist ECTR Right Maximiliano New MD Actual Procedure Side Surgeon p Wrist ECTR Right Maximiliano New MD Meds Allergies and Home Medications Allergies Allergy/AdvReac Type Severity Reaction Status Date / Time No Known Allergies Allergy Verified 10/15/23 06:36 Home Medication Medication Instructions Recorded cholecalciferol (vitamin D3) 50 1,000 unit PO DAILY 08/17/19 mcg (2,000 unit) tablet (Vitamin D3) lisinopril 20 1 tab PO DAILY 07/03/20 mg-hydrochlorothiazide 12.5 mg tablet bimatoprost 0.01 % eye drops 1 drp ophthalmic (eye) DAILY 04/29/23 (Lumigan) fluticasone propionate 50 1 spray intranasal DAILY 04/29/23 mcg/actuation nasal spray,suspension sildenafil 100 mg tablet 100 mg PO DAILY PRN 04/29/23 acetaminophen 500 mg tablet 1,000 mg (2 x 500 mg) PO TID #90 10/08/23 tabs hydrocodone 5 mg-acetaminophen 325 1 tab PO Q6H PRN pain #3 tabs 10/08/23 mg tablet ibuprofen 600 mg tablet 600 mg PO TID PRN pain #90 tabs 10/08/23 Current Visit Medications: Current Medications Generic Name Dose Route Start Last Admin Trade Name Freq PRN Reason Stop Dose Admin Acetaminophen 650 mg 10/15/23 07:12 Acetaminophen 325 Mg Tab PO 11/14/23 07:11 Q4H PRN PRN Ringer's Solution 1,000 mls @ 80 mls/hr 10/15/23 06:00 10/15/23 06:56 IV 10/15/23 23:59 80 mls/hr INFUSION HERBIE Administration Cefazolin Sodium/Dextrose 2 gm in 50 mls @ 100 mls/hr 10/15/23 06:00 Ancef Duplex IVPB 10/15/23 23:59 PREOP HERBIE IV Miscellaneous Supplies 1 each 10/15/23 06:00 Iv Access IV 10/15/23 23:59 DIRECTED HERBIE Sodium Chloride 0 ml 10/15/23 06:00 Normal Saline Flush 10 Ml Syr IV 10/15/23 23:59 PRN PRN Sodium Chloride 0 ml 10/15/23 06:00 Normal Saline 10 Ml Vial IJ 10/15/23 23:59 DIRECTED PRN Sterile Water 0 ml 10/15/23 06:00 Water,Injection,Sterile 10 Ml Vial IJ 10/15/23 23:59 DIRECTED PRN PFSH Active Problems Active Problems: Problem Status Onset Code Essential tremor G25.0 Carpal tunnel syndrome of left wrist G56.02 Carpal tunnel syndrome of right wrist G56.01 Hypertension, benign I10 Neoplasm of unspecified behavior of bone, soft tissue, and skin D49.2 Epidermoid cyst of finger of left hand L72.0 Finger mass, left R22.32 Medical History Medical History Hyperplastic colon polyp (~07/2023) Traumatic intracranial hemorrhage ??? 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 17 but not clear that he had intracranial hemorrhage- I smacked my head off the pavement, and a crushed artery_not required to see neuro History of prediabetes Seasonal allergies Low back pain Obstructive sleep apnea of adult Glaucoma Depression Vitamin D deficiency Melanosis coli Disorder of tendon of biceps Erectile dysfunction Hypercholesterolemia Prediabetes Hypertension Surgical History Surgical History History of colonoscopy (~07/2023) path sent No pertinent past surgical history Tobacco Smoking/Tobacco Use Status: Never Alcohol Alcohol Intake: current Alcohol intake frequency: 0-2 drinks per day Alcohol type: wine Substance Use Substance use: Rarely Substance use type: marijuana Vital Signs and Lab Results Vital Signs Most Recent Vital Signs in EMR: Most Recent Vital Signs Temp Pulse Resp BP Pulse Ox 36.5 C 69 16 146/93 H 96 10/15/23 06:50 10/15/23 06:50 10/15/23 06:50 10/15/23 06:50 10/15/23 06:50 Lab Results Blood Type / Crossmatch: No Data to Display Complete Blood Count: No Data to Display Complete Metabolic Panel: No Data to Display Liver Function Panel: No Data to Display Coagulation Panel: No Data to Display Cardiac Panel: No Data to Display Arterial Blood Gas: No Data to Display Venous Blood Gas: No Data to Display Pancreas Panel: No Data to Display Thyroid Panel: No Data to Display Infectious Disease: No Data to Display Blood Cultures: No Data to Display Toxicology Panel: No Data to Display Anesthesia Assessment and Plan Anesthesia History Personal History: No History of Anesthesia Complications Family History: No Family History of Anesthesia Complications Exercise Tolerance Exercise Tolerance: Metabolic Equivalents>4 Cardiac & Pulmonary Exam Cardiac Exam: Normal S1/S2 Heart Sounds Pulmonary Exam: Clear Bilateral Breath Sounds Implantable Cardiac Device Does patient have a Pacemaker or an ICD?: No Airway Exam Known Difficult Airway: No Mallampati Class: 2 Mouth Opening: Normal (> 3cm) Thyromental Distance: Greater than 3 cm Neck Range of Motion: Full ROM Neck Circumference: Normal Teeth Condition: Normal Dentition ASA Classification ASA Score: ASA 2 Emergency Case?: No NPO Status NPO Status: NPO Clears >2 hours, Solids >8 hours Anesthesia Plan Resuscitation Status: Full Code Anesthesia Technique: General Anesthesia Airway Planned: Natural Airway Monitors Used: Standard Monitors
[2023-10-15 07:17] VITALS: BMI 34.4
[2023-10-15] MEDS: ceFAZolin 2 GM/50 ML BAG IVPB (07:24)
[2023-10-15] MEDS: Lidocaine 1% Multi-Dose W/EPI 1/100,000 50 ML VIAL (07:33)
--- NOTE | 2023-10-15 07:43 | W.PM.OP ---
Date of service: 10/15/23 Time of Service: 07:30 Operative Note Operative Note DATE OF PROCEDURE: 10/15/23 PRE-OP DIAGNOSIS: Right Carpal Tunnel Syndrome POST-OP DIAGNOSIS: same PROCEDURE: Right Endoscopic Carpal Tunnel Release SURGEON: Maximiliano New ANESTHESIA TYPE: General:No Airway Refer to Anesthesia Record ESTIMATED BLOOD LOSS: 0 PATHOLOGY: none sent TOURNIQUET TIME: 6 COMPLICATIONS: None Patient was transported to: same day Patient's condition: stable Indications: I have seen Sanchez in clinic for symptoms of carpal tunnel syndrome. The numbness, tingling, and pain limited function. Clinical exam findings with nerve conduction tests confirmed the diagnosis of carpal tunnel syndrome. Nonoperative measures such as bracing, time, activity modifications had been tried but disability and pain persisted. I discussed carpal tunnel release with the patient. I reviewed the risks of the procedure to include, but not limited to, bleeding, infection, pain, stiffness, incomplete release, damage to nerves or vessels, persistent numbness, recurrence. Despite these risks, the patient elected to proceed. Findings: There was tightened carpal tunnel. This was dilated and released successfully with the endoscopic with increased space within the tunnel. The antebrachial fascia was released proximally freeing the median nerve at the wrist. Procedure Description: Sanchez was greeted in the preoperative holding area where the correct side was identified and marked. The consent was reviewed with the patient and signed. The history and physical was updated. All questions were answered. He was taken back to the operating room. The patient was placed into the supine position on the operating room table with the right arm on an arm board. A nonsterile tourniquet was placed high onto the arm. All bony prominences were well padded. Prophylactic antibiotics in the form of Cefazolin were administered. The right arm was then prepped with Chloraprep and draped in a standard fashion with stockinette and extremity drape. A timeout to confirm correct identity, side and site, procedure, allergies, anesthesia, and medical concerns was performed. The surgical site was marked in the volar wrist creases in line with the radial border of the fourth ray. This area was anesthetized with approximately 6cc of 1% Lidocaine. The limb was then exsanguinated with an Esmarch. The skin was incised with a 15 blade, approximately 1cm. The skin only was cut and the deeper tissue was dissected bluntly with a tenotomy scissor, avoiding passing nerve and venous structures. The fascia was penetrated and opened bluntly. A two-prong skin hook was placed under this proximal fascial edge. A series of hamate finders were used to identify and dilate the carpal tunnel. Synovial elevator was used to free synovial attachments to the underside of the transverse carpal ligament. My thumb was kept in the palm to eugene the distal extent of the carpal tunnel and correctly position the hand. The Microaire endoscope was inserted without difficulty and without resistance. Excellent visualization showed horizontally running fibers of the transverse carpal ligament (TCL). The distal extent of the TCL was visualized and the end of the scope palpated with the thumb. The blade was elevated and withdrawn from distal to proximal. The TCL was split into two flaps. The endoscope was reinserted to confirm complete release and any remnant ligament was incised. The scope was withdrawn and the proximal aspect of the carpal tunnel was grossly inspected and appeared release with the median nerve visible. The antebrachial fascia at the level of the wrist was then freed from the overlying skin and then the underlying median nerve with blunt dissection. This was transected longitudinally for about 3cm proximal to the wrist incision. The wound was then irrigated with easy flow of irrigant distally and proximally. The incision was closed with a single 4-0 Nylon suture. The wound was dressed with Xeroform, Gauze, Kerlix and Brian. The tourniquet was deflated with the initial dressing and held with some pressure. Blood flow returned easily to all digits with capillary refill less than 2 seconds. The suture from the left side was removed without difficulty. The patient tolerated the procedure well and was returned to the Same Day Surgery area in a stable condition suffering no known complication.
[2023-10-15 07:58] VITALS: BP 122/81; PULSE 68; RESP 18; TEMP 36.4; O2SAT 95
[2023-10-15 08:27] VITALS: BP 130/78; PULSE 62; RESP 18; TEMP 36.6; O2SAT 95
--- NOTE | 2023-10-15 08:29 | W.ANESPOSTOP ---
Postoperative Evaluation Date, Time and Location Date Performed: 10/15/23 Time Performed: 08:15 Patient Location: Day Surgery Unit Vital Signs Most Recent Imported Vital Signs: Most Recent Vital Signs Temp Pulse Resp BP Pulse Ox 36.6 C 62 18 130/78 95 10/15/23 08:27 10/15/23 08:27 10/15/23 08:27 10/15/23 08:27 10/15/23 08:27 Pain Score Most Recent Pain Score: Most Recent Pain Score Pain Level 0 10/15/23 08:27 Assessment Mental Status: Awake (Alert & Oriented to Patient Baseline) Airway and Respiratory Function: Patent airway with normal (patient baseline) respiratory exam Cardiovascular Function: Hemodynamically Stable Hydration Status: Adequately Hydrated Nausea & Vomiting: No Nausea or Vomiting Pain: Pt. Denies Any Pain Peripheral Nerve Block: Patient did not receive a nerve block
== END 2023-10-15 09:13 | disposition home or self-care (01) ==
PROVIDERS: PCP Nurse Practitioner Family; Visit Provider Student in an Organized Health Care Education/Training Program
PROC: 01N54ZZ Release Median Nerve, Percutaneous Endoscopic Approach (ICD-10-PCS; CPT 29848; principal; 2023-10-15 07:30)
DX: G56.01 Carpal tunnel syndrome, right upper limb (principal)
CPT/HCPCS: 29848; J0690; J1885; J2001; J2004; J2405; J2704

== ENCOUNTER 2024-02-11 11:06 | Outpatient (CLI) | payer OTHER, SELFPAY ==
--- NOTE | 2024-02-11 09:45 | DI.RAD_ITS ---
Exam(s) XR SHOULDER RT COMPLETE 2+V EXAM: XR SHOULDER RT COMPLETE 2+V CLINICAL HISTORY: RIGHT SHOULDER PAIN. TECHNIQUE: 2D digital imaging was performed. Five views. COMPARISON: No exams were available for comparison FINDINGS: BONES: No acute fracture is present. No bony destructive lesion is seen.Spurring at the greater tuber osity and undersurface of carotid acromion. JOINTS: No dislocation present. [id number] narrowing of the glenohumeral joint. Mild spurring at the AC joint. SOFT TISSUE: Normal. IMPRESSION: [id number] degenerative changes. DATA REPOSITORY: RADIATION DOSE DELIVERED:
== END 2024-02-11 11:07 | disposition home or self-care (01) ==
LOC: DIORS 11:06
PROVIDERS: PCP Nurse Practitioner Family; Visit Provider Student in an Organized Health Care Education/Training Program
DX: M25.511 Pain in right shoulder (principal); M19.011 Primary osteoarthritis, right shoulder
CPT/HCPCS: 73030

== ENCOUNTER 2024-03-02 01:13 | Outpatient (CLI) | payer OTHER, SELFPAY ==
--- OUTSIDE RECORDS SUMMARY | 2024-03-02 01:16 | XMS_ITS | Encounter Summary ---
Author Organization [facility] Address [address] [place] [address] Care Team Providers Care Plant Operator Control Room Operator Name Role Phone Jenniffer Gill KEG WASHER Primary Care Provider [phone] Encounter Details Date Type Department Care Team (Late st Contact Info) Description 07/30/2023 Lab Requisition [facility] Pathology & Laboratory Medicine - [facility] [address] [place] [address] Mp Tan MD [address] [place] [phone] Encounter for other general examination Social History Tobacco Use Types Packs/Day Years Used Date Smoking Tobacco: Never Assessed Interpersonal Safety Answer Date Record ed Physically Hurt Never 03/23/2020 Verbally Threaten Not on file 03/23/2020 Sex and Gender Information Value Date Recorded Sex Assigned at Not on file Gender Identity Male 10/19/2019 16:22 EDT Sexual Orientation Not on file documented as of this encounter Plan of Treatment Not on file documented as of this encounter Procedures Procedure Name Priority Date/Time Associated Diagnosis Comments SURGICAL PATHOLOGY Today 07/30/2023 9: 29 EST Encounter for other general examination documented in this encounter Results * SURGICAL PATHOLOGY (07/30/2023 9:29 EST) Note to Patient The following pathology results have been interpreted by your pathologist and may be available to you before your health provider has had the opportunity to review them. Please allow time for your provider to receive these results and explore management options, if applicable. 08/02/2023 12:39 [facility] Final Diagnosis A. RECTUM, POLYP, BIOPSY: - Hyperplastic polyp fragments. 08/02/2023 12:39 [facility] Attestation By the signature below, the attending physician certifies that they have 1) personally conducted a gross and/or microscopic examination of the described specimen(s), and/or personally interpreted the results of laboratory testing of the described specimen(s), and 2) personally rendered or confirmed the above diagnosis. 08/02/2023 12:39 [facility] at 1239 Clinical History Screening 08/02/2023 12:39 [facility] Gross Description A. Received in formalin labelled with proper patient identification (initials C, J) and rectal polyp are 2 cerda tissues (0.2 x 0.2 x 0.1 cm and 0.4 x 0.1 x 0.1 cm). Submitted entirely in A1. VICTOR M CRAIN(ASCP) 07/31/2023 8:02 08/02/2023 12:39 [facility] Performing Lab [facility] 08/02/2023 12:39 [facility] Scanned Images 08/02/2023 12:39 [facility] Tissue SPECIMEN FROM RECTUM / Unknown 07/30/2023 9:29 EST 07/30/2023 16:53 EST Mp Tan MD PATHOLOGY ORDERABLES [facility] [address] [place] [address] documented in this encounter Visit Diagnoses Diagnosis Encounter for other general examination documented in this encounter Care Teams Plant Operator Control Room Operator Relationship Specialty Start Date End Date Jenniffer Gill NP [address] [place] [phone] PCP - General 03/13/20 documented as of this encounter
--- OUTSIDE RECORDS SUMMARY | 2024-03-02 01:16 | XMS_ITS | Encounter Summary ---
Author Organization [facility] Address [address] [place] [address] Care Team Providers Care White Washer Name Role Phone Inderjit Kline MD Primary Care Provider [phone] Encounter Details Date Type Department Care Team (Late st Contact Info) Description 08/22/2016 Historical Results Only [facility] Lab - Main [place] [address] [place] [address] Libertad Gibbs MD [address] [place] [phone] Social History Tobacco Use Types Packs/Day Years Used Date Smoking Tobacco: Never Assessed Sex and Gender Information Value Date Recorded Sex Assigned at Not on file Gender Identity Male 10/19/2019 16:22 EDT Sexual Orientation Not on file documented as of this encounter Plan of Treatment Not on file documented as of this encounter Procedures Procedure Name Priority Date/Time Associated Diagnosis Comments LIPID PANEL POC - [facility] Routine 08/22/2016 15:55 EST documented in this encounter Results * LIPID PANEL POC - [facility] (08/22/2016 15:55 EST) Triglyceride 134 0.00 - 150.00 MG/DL 08/22/2016 15:57 EST [facility] Cholesterol 172 0.00 - 200.00 MG/DL 08/22/2016 15:57 EST [facility] HDL 52 40.00 - 60.00 MG/DL 08/22/2016 15:57 EST [facility] 08/22/2016 15:5 5 EST 08/22/2016 15:55 EST Libertad Gibbs MD CHEMISTRY & BLOOD GA S ORDERABLES [facility] documented in this encounter Visit Diagnoses Not on filedocumented in this encounter Care Teams White Washer Relationship Specialty Start Date End Date Inderjit Kline MD [address] [place] [address] PCP - General 05/20/15 03/12/20 documented as of this encounter
--- OUTSIDE RECORDS SUMMARY | 2024-03-02 01:16 | XMS_ITS | Encounter Summary ---
Author Organization [facility] Address [address] [place] [address] Care Team Providers Care Back Feeder Plywood Layup Line Name Role Phone Jenniffer Gill SALES TRAINEE Primary Care Provider Encounter Details Date Type Department Care Team (Late st Contact Info) Description 03/14/[address] [facility] Pathology & Laboratory Medicine - [facility] [address] [place] [address] Vinh Rice, [address] [place], [place] [id number] Neoplasm of unspecified behavior of bone, soft tissue, and skin Social History Tobacco Use Types Packs/Day Years [...] Date/Time Associated Diagnosis Comments SURGICAL PATHOLOGY Today 03/13/2020 12 :05 EDT Neoplasm of unspecified behavior of bone, soft tissue, and skin documented in this encounter Results * SURGICAL PATHOLOGY (03/13/2020 12:05 EDT) Final Diagnosis A. SKIN OF ELBOW, RIGHT, SHAVE BIOPSY: - Solar lentigo. See comment. 03/15/2020 17:10 [facility] Diagnosis Comment The findings are those of a solar lentigo/early seborrheic keratosis. 03/15/2020 17:10 [facility] Attestation By the signature below, the attending physician certifies that they have 1) personally conducted a gross and/or microscopic examination of the described specimen(s), and/or personally interpreted the results of laboratory testing of the described specimen(s), and 2) personally rendered or confirmed the above diagnosis. 03/15/2020 17:10 [facility] at 1710 Clinical History Nevus, ? Melanoma; clinical diagnosis code: D49.2 03/15/2020 17:10 [facility] Gross Description A. Received in formalin labelled with proper patient identification (initials C, J) and right elbow is a 1.5 x 1.3 x 0.1 cm irregular shave of hair-bearing, mottled cerda-brown to yellow skin. The margin is inked. The specimen is serially sectioned and entirely submitted in A1-A2. Arlene Ellen 03/15/2020 8:02 03/15/2020 17:10 EDT [facility] Performing Lab [facility] 03/15/2020 17:10 [facility] Scanned Images 03/15/2020 17:10 [facility] Tissue TISSUE SPECIMEN FROM SKIN / Unknown 03/13/2020 12:05 EDT 03/14/2020 16:47 EDT Vinh Rice DO PATHOLOGY ORDER DAMIAN [facility] [address] [place] [address] documented in this encounter Visit Diagnoses Diagnosis Neoplasm of unspecified behavior of bone, soft tissue, and skin documented in this encounter Care Teams Back Feeder Plywood Layup Line Relationship Specialty Start Date End Date Jenniffer Gill NP [address] [place] [address] PCP - General 03/13/20 documented as of this encounter
--- OUTSIDE RECORDS SUMMARY | 2024-03-02 01:16 | XMS_ITS | Clinical Summary ---
Author [place] [address] Care Team Providers Care Metals Analyst Name Role Phone Unavailable Primary Care Provider Unavailabl e Social History Tobacco Use Types Packs/Day Years Used Date Smoking Tobacco: Never Assessed Sex and Gender Information Value Date Recorded Sex Assigned at Not on file Gender Identity Not on file Sexual Orientation Not on file Plan of Treatment Health Maintenance Due Date Last Done Comments CT Colonography 1961 Colonoscopy 1961 Colorectal Cancer Screening 1961 FIT DNA 1961 FIT 1961 Sigmoidoscopy (10 year) with FIT yearly 1961 Sigmoidoscopy 1961 HIV screen 10/30/1979 Hepatitis C Screening 10/30/1979 Lipid Screening 10/30/1979 Tdap adult 1980 Tetanus vaccine 1980 Zoster vaccine (1 of 2) 10/30/2011 Advance Directive 2016 Covid-19 Vaccine ( season) 2023 Influenza (Flu) vaccine (1 o f 1 - Influenza standard series) 03/14/2024
--- OUTSIDE RECORDS SUMMARY | 2024-03-02 01:16 | XMS_ITS | Encounter Summary ---
Author Organization [facility] Address [address] [place] [address] Care Team Providers Care Recreation Therapist Name Role Phone Inderjit Kline MD Primary Care Provider [phone] Encounter Details Date Type Department Care Team (Late st Contact Info) Description 08/22/2016 Historical Results Only [facility] - [facility] - Main [address] [address] Libertad Gibbs MD [address] [place] [phone] Social History Tobacco Use Types Packs/Day Years Used Date Smoking Tobacco: Never Assessed Sex and Gender Information Value Date Recorded Sex Assigned at Not on file Gender Identity Male 10/19/2019 16:22 EDT Sexual Orientation Not on file documented as of this encounter Plan of Treatment Not on file documented as of this encounter Procedures Procedure Name Priority Date/Time Associated Diagnosis Comments GLYCOHEMOGLOBIN POC - CV Routine 08/22/2016 15:55 EST documented in this encounter Results * GLYCOHEMOGLOBIN POC - CV (08/22/2016 15:55 EST) Hemoglobin A1c 5.7 4.0 - 6.0 % 08/22/2016 15:57 EST [facility] AVG CALCULATED GLUCOSE - [facility] 110 60 - 115 MG/DL 08/22/2016 15:57 EST [facility] 08/22/2016 15:5 5 EST 08/22/2016 15:55 EST Libertad Gibbs MD CHEMISTRY & BLOOD GA S ORDERABLES [facility] documented in this encounter Visit Diagnoses Not on filedocumented in this encounter Care Teams Recreation Therapist Relationship Specialty Start Date End Date Inderjit Kline MD [address] [place] [address] PCP - General 05/20/15 03/12/20 documented as of this encounter
--- OUTSIDE RECORDS SUMMARY | 2024-03-02 01:16 | XMS_ITS | Encounter Summary ---
Author Organization [facility] Address [address] [place] [address] Care Team Providers Care Project Specialist Name Role Phone Inderjit Kline MD Primary Care Provider [phone] Encounter Details Date Type Department Care Team (Late st Contact Info) Description 08/22/2016 Historical Results Only [facility] Lab - Main [address] [address] Libertad Gibbs MD [address] [place] [phone] Social History Tobacco Use Types Packs/Day Years Used Date Smoking Tobacco: Never Assessed Sex and Gender Information Value Date Recorded Sex Assigned at Not on file Gender Identity Male 10/19/2019 16:22 EDT Sexual Orientation Not on file documented as of this encounter Plan of Treatment Not on file documented as of this encounter Procedures Procedure Name Priority Date/Time Associated Diagnosis Comments POCT CHOLESTEROL LDL ([facility]) Routine 08/22/2016 15:55 EST documented in this encounter Results * POCT CHOLESTEROL LDL ([facility]) (08/22/2016 15:55 EST) LDL CHOLESTEROL - [facility] 93 60 - 100 mg/dl 08/22/2016 15:57 EST [facility] 08/22/2016 15:5 5 EST 08/22/2016 15:55 EST Libertad Gibbs MD POINT OF CARE TEST O RDERABLES [facility] documented in this encounter Visit Diagnoses Not on filedocumented in this encounter Care Teams Project Specialist Relationship Specialty Start Date End Date Inderjit Kline MD [address] [place] [phone] PCP - General 05/20/15 03/12/20 documented as of this encounter
--- OUTSIDE RECORDS SUMMARY | 2024-03-02 01:16 | XMS_ITS | Encounter Summary ---
Author Organization [facility] Address [address] [place] [address] Care Team Providers Care General Lithographic Worker Name Role Phone Inderjit Kline MD Primary Care Provider [phone] Jenniffer Gill NP Primary Care Provider [phone] Encounter Details Date Type Department Care Team (Late st Contact Info) Description 08/17/2019 Lab Requisition [facility] Pathology & Laboratory Medicine - [facility] [address] [place] [address] Maximiliano New Jr., MD [address] [place] [address] Localized swelling, mass and lump, left upper limb Social History Tobacco Use Types Packs/Day Years [...] Date/Time Associated Diagnosis Comments SURGICAL PATHOLOGY Today 08/17/2019 11 :20 EST Localized swelling, mass and lump, left upper limb documented in this encounter Results * SURGICAL PATHOLOGY (08/17/2019 11:20 EST) Final Diagnosis A. SKIN OF FINGER, LEFT INDEX, EXCISION: - Epidermoid cyst, keratinous type. See comment. 08/18/2019 10:18 [facility] at 1018 Diagnosis Comment The histologic features are consistent with an epidermal inclusion cyst. 08/18/2019 10:18 [facility] Microscopic Description There is a dermal cyst that is lined by stratified squamous epithelium that matures through a granular layer. The cyst is filled with laminated orthokeratin. 08/18/2019 10:18 [facility] Clinical History Mass left index finger 08/18/2019 10:18 [facility] Attestation By the signature below, the attending physician certifies that they have personally conducted a gross and/or microscopic examination of the described specimens and rendered or confirmed the above diagnosis. 08/18/2019 10:18 [facility] at 1018 Gross Description A. Received in formalin labelled with proper patient identification (initials C, J) and mass left index finger is a focally disrupted cyst (1.1 x 1.1 x 0.6 cm). The cyst is filled with white friable material. The specimen is submitted entirely in A1. 08/17/2019 15:47 08/18/2019 10:18 [facility] Scanned Images 08/18/2019 10:18 [facility] Tissue TISSUE SPECIMEN FROM SKIN / Unknown 08/17/2019 11:20 EST 08/17/2019 15:39 EST Maximiliano New Jr., MD PATHOLO GY ORDERABLES [facility] [address] [place] [address] documented in this encounter Visit Diagnoses Diagnosis Localized swelling, mass and lump, left upper limb documented in this encounter Care Teams General Lithographic Worker Relationship Specialty Start Date End Date Inderjit Kline MD [address] [place] [address] PCP - General 05/20/15 03/12/20 Jenniffer Gill NP [address] [place] [phone] PCP - General 03/13/20 documented as of this encounter
--- OUTSIDE RECORDS SUMMARY | 2024-03-02 01:16 | XMS_ITS | Encounter Summary ---
Author Organization [facility] Address [address] [place] [address] Care Team Providers Care Selenium Plant Operator Name Role Phone Inderjit Kline MD Primary Care Provider Encounter Details Date Type Department Care Team (Late st Contact Info) Description 08/22/2016 Historical Results Only [facility] - [facility] Lab - Main [address] [address] Libertad Gibbs MD [address] [place] [phone] Social History Tobacco Use Types Packs/Day Years Used Date Smoking Tobacco: Never Assessed Sex and Gender Information Value Date Recorded Sex Assigned at Not on file Gender Identity Male 10/19/2019 16:22 EDT Sexual Orientation Not on file documented as of this encounter Plan of Treatment Not on file documented as of this encounter Procedures Procedure Name Priority Date/Time Associated Diagnosis Comments VITAMIN D 25 POC - [facility] Routine 08/22/2016 15:55 EST documented in this encounter Results * VITAMIN D 25 POC - [facility] (08/22/2016 15:55 EST) VIT D, 25 HYDROXY - CV 31 30 - 100 NG/ML 08/22/2016 15:57 EST [facility] 08/22/2016 15:5 5 EST 08/22/2016 15:55 EST Libertad Gibbs MD CHEMISTRY & BLOOD GA S ORDERABLES [facility] documented in this encounter Visit Diagnoses Not on filedocumented in this encounter Care Teams Selenium Plant Operator Relationship Specialty Start Date End Date Inderjit Kline MD [address] [place] [phone] PCP - General 05/20/15 03/12/20 documented as of this encounter
--- OUTSIDE RECORDS SUMMARY | 2024-03-02 01:16 | XMS_ITS | Encounter Summary ---
Author Organization [facility] Address [address] [place] [address] Care Team Providers Care Mc Kay Stitcher Name Role Phone Inderjit Kline MD Primary Care Provider [phone] Encounter Details Date Type Department Care Team (Late st Contact Info) Description 08/22/[address] [facility] Lab - Main [address] [address] Libertad Gibbs MD [address] [place] [phone] Social History Tobacco Use Types Packs/Day Years Used Date Smoking Tobacco: Never Assessed Sex and Gender Information Value Date Recorded Sex Assigned at Not on file Gender Identity Male 10/19/2019 16:22 EDT Sexual Orientation Not on file documented as of this encounter Plan of Treatment Not on file documented as of this encounter Procedures Procedure Name Priority Date/Time Associated Diagnosis Comments MAGNESIUM POC - CV Routine 08/22/2016 15:55 EST documented in this encounter Results * MAGNESIUM POC - CV (08/22/2016 15:55 EST) Magnesium 2.20 1.60 - 2.30 MG/DL 08/22/2016 15:57 EST [facility] 08/22/2016 15:5 5 EST 08/22/2016 15:55 EST Libertad Gibbs MD CHEMISTRY & BLOOD GA S ORDERABLES [facility] documented in this encounter Visit Diagnoses Not on filedocumented in this encounter Care Teams Mc Kay Stitcher Relationship Specialty Start Date End Date Inderjit Kline MD [address] [place] [address] PCP - General 05/20/15 03/12/20 documented as of this encounter
--- OUTSIDE RECORDS SUMMARY | 2024-03-02 01:16 | XMS_ITS | Encounter Summary ---
Author Organization [facility] Address [address] [place] [address] Care Team Providers Care Child Life Therapist Name Role Phone Inderjit Kline MD Primary Care Provider [phone] Encounter Details Date Type Department Care Team (Late st Contact Info) Description 10/15/2018 Historical Results Only [facility] Lab - Main [place] [address] [place] [address] Libertad Gibbs MD [address] [place] [phone] Social History Tobacco Use Types Packs/Day [...] Diagnosis Comments VITAMIN D 25 POC - [facility] Routine 10/16/19 19 15:36 EDT COMPREHENSIVE METABOLIC POC - [facility] Routine 10/15/2018 15:36 EDT GLYCOHEMOGLOBIN POC - CV Routine 10/15/2018 15:36 EDT MAGNESIUM POC - [facility] Routine 10/15/2018 15:36 EDT LIPID PANEL POC - [facility] Routine 9 13:14 EDT documented in this encounter Results * (ABNORMAL) VITAMIN D 25 POC - [facility] (10/15/2018 15:36 EDT) VIT D, 25 HYDROXY - [facility] 28(L) 30 - 100 NG/ML 10/15/2018 15:38 EDT [facility] 10/15/2018 15:3 6 EDT 10/15/2018 15:36 EDT Libertad Gibbs MD CHEMISTRY & BLOOD GA S ORDERABLES Performing Organization Address City/[facility]/ZIP Co de Phone Number [facility] * MAGNESIUM POC - [facility] (10/15/2018 15:36 EDT) Magnesium 2.30 1.60 - 2.30 MG/DL 10/15/2018 15:38 EDT [facility] 10/15/2018 15:3 6 EDT 10/15/2018 15:36 EDT Libertad Gibbs MD CHEMISTRY & BLOOD GA S ORDERABLES [facility] * GLYCOHEMOGLOBIN POC - [facility] (10/15/2018 15:36 EDT) Hemoglobin A1c 5.5 4.0 - 6.0 % 10/15/2018 15:38 EDT [facility] AVG CALCULATED GLUCOSE - [facility] 103 60 - 115 MG/DL 10/15/2018 15:38 EDT [facility] 10/15/2018 15:3 6 EDT 10/15/2018 15:36 EDT Libertad Gibbs MD CHEMISTRY & BLOOD GA S ORDERABLES [facility] * (ABNORMAL) COMPREHENSIVE METABOLIC POC - [facility] (10/15/2018 15:36 ED) Albumin % 4.8 3.50 - 5.00 G/DL 10/15/2018 15:38 [facility] ALKALINE PHOSPHATASE - [facility] 63 38.00 - 126.00 U/L 10/15/2018 15:38 [facility] BILIRUBIN TOTAL 0.6 0.20 - 1.30 MG/DL 10/15/2018 15:38 [facility] BUN - [facility] 20 7.00 - 20.00 MG/DL 10/15/2018 15:38 [facility] CALCIUM - [facility] 9.8 8.50 - 10.50 MG/DL 10/15/2018 15:38 [facility] Chloride 102 98.00 - 107.00 MMOL/L 10/15/2018 15:38 [facility] CO2 Total 24 22.00 - 30.00 MMOL/L 10/15/2018 15:38 [facility] CREATININE 1.1 0.70 - 1.50 MG/DL 10/15/2018 15:38 [facility] Anion Gap 12 7 - 17 MMOL/L 10/15/2018 15:38 [facility] GLUCOSE - [facility] 108(H) 70.00 - 100.00 MG/DL 10/15/2018 15:38 [facility] Potassium 4.3 3.50 - 5.10 MMOL/L 10/15/2018 15:38 [facility] Sodium 138 137.00 - 145.00 MMOL/L 10/15/2018 15:38 [facility] TOTAL PROTEIN - [facility] 7.5 6.30 - 8.20 G/DL 10/15/2018 15:38 [facility] SGOT/AST - [facility] 33 15.00 - 46.00 U/L 10/15/2018 15:38 [facility] SGPT/ALT - [facility] 39 13.00 - 69.00 U/L 10/15/2018 15:38 [facility] 10/15/2018 15:3 6 EDT 10/15/2018 15:36 EDT Libertad Gibbs MD CHEMISTRY & BLOOD GA S ORDERABLES [facility] * (ABNORMAL) LIPID PANEL POC - [facility] (10/15/2018 13:14 EDT) Triglyceride 162(H) 0.00 - 150.00 MG/DL 10/19/2018 13:15 EDT [facility] Cholesterol 167 0.00 - 200.00 MG/DL 10/19/2018 13:15 EDT [facility] HDL 51 40.00 - 60.00 MG/DL 10/19/2018 13:15 EDT [facility] 10/15/2018 13:1 4 EDT 10/15/2018 13:14 EDT Libertad Gibbs MD CHEMISTRY & BLOOD GA S ORDERABLES [facility] documented in this encounter Visit Diagnoses Not on filedocumented in this encounter Care Teams Child Life Therapist Relationship Specialty Start Date End Date Inderjit Kline MD [address] [place] [address] PCP - General 05/20/15 03/12/20 documented as of this encounter
--- OUTSIDE RECORDS SUMMARY | 2024-03-02 01:16 | XMS_ITS | Clinical Summary ---
Author Organization [facility] Address [address] [place] [address] Care Team Providers Care Halftone Operator Name Role Phone Jenniffer Gill CAREER AND TECHNOLOGY EDUCATION TEACHER Primary Care Provider [phone] Social History Tobacco Use Types Packs/Day Years Used Date Smoking Tobacco: Never Assessed Interpersonal Safety Answer Date Record ed Physically Hurt Never 03/23/2020 Verbally Threaten Not on file 03/23/2020 Sex and Gender Information Value Date Recorded Sex Assigned at Not on file Gender Identity Male 10/19/2019 16:22 EDT Sexual Orientation Not on file Plan of Treatment Health Maintenance Due Date Last Done Comments Hepatitis C Screen 1960 RSV Immunization ( o r 60+ Years) (1 - 1-dose 60+ series) 2021 COVID-19 Vaccine ( season) 2023 Care Teams Halftone Operator Relationship Specialty Start Date End Date Jenniffer Gill, CAREER AND TECHNOLOGY EDUCATION TEACHER [address] [place] [id number] PCP - General 03/13/20
--- OUTSIDE RECORDS SUMMARY | 2024-03-02 01:16 | XMS_ITS | Encounter Summary ---
Author Organization [facility] Address [address] [place] [address] Care Team Providers Care Activity Director Name Role Phone Inderjit Kline MD Primary Care Provider [phone] Encounter Details Date Type Department Care Team (Late st Contact Info) Description 10/15/2018 Historical Results Only [facility] - Main [address] [address] Libertad Gibbs MD [address] [place] [phone] Social History Tobacco Use Types Packs/Day [...] Date/Time Associated Diagnosis Comments POCT CHOLESTEROL LDL ([facility]) Routine 10/15/2018 13:14 EDT documented in this encounter Results * POCT CHOLESTEROL LDL ([facility]) (10/15/2018 13:14 EDT) LDL CHOLESTEROL - [facility] 84 60 - 100 MG/DL 10/19/2018 13:15 EDT [facility] 10/15/2018 13:1 4 EDT 10/15/2018 13:14 EDT Libertad Gibbs MD POINT OF CARE TEST O RDERABLES [facility] documented in this encounter Visit Diagnoses Not on filedocumented in this encounter Care Teams Activity Director Relationship Specialty Start Date End Date Inderjit Kline MD [address] [place] [phone] PCP - General 05/20/15 03/12/20 documented as of this encounter
--- OUTSIDE RECORDS SUMMARY | 2024-03-02 01:16 | XMS_ITS | Encounter Summary ---
Author Organization [facility] [place] [address] Care Team Providers Care Cost Consultant Name Role Phone Unavailable Primary Care Provider Unavailabl e Encounter Details Date Type Department Care Team (Late st Contact Info) Description 03/07/2023 Telephone Ophthalmology at [facility] [place] [phone] Felix Sánchez MD [facility] [place] [address] Social History Tobacco Use Types Packs/Day Years Used Date Smoking Tobacco: Never Assessed Sex and Gender Information Value Date Recorded Sex Assigned at Not on file Gender Identity Not on file Sexual Orientation Not on file documented as of this encounter Miscellaneous Notes * Telephone Encounter - Jeane Dia - 03/07/2023 10:15 AM EDT Patient called back I informed him. Expressed understanding. * Telephone Encounter - Jeane Dia - 03/07/2023 10:10 AM EDT Patient called to schedule referral from Dr. Love for Glaucoma. As of this date no referral. Please tell patient unable to take Glaucoma at this time he will need to have Dr. Love refer out of [facility]. Entered as new patient. documented in this encounter Plan of Treatment Not on file documented as of this encounter Visit Diagnoses Not on filedocumented in this encounter
--- OUTSIDE RECORDS SUMMARY | 2024-03-02 01:16 | XMS_ITS | Referral Summary ---
Author Organization [facility] Address [address] [place] [address] Care Team Providers Care Ex Chef Name Role Phone Jenniffer Gill EYELET CUTTER Primary Care Provider [phone] Social History Tobacco Use Types Packs/Day Years Used Date Smoking Tobacco: Never Assessed Interpersonal Safety Answer Date Record ed Physically Hurt Never 03/23/2020 Verbally Threaten Not on file 03/23/2020 Sex and Gender Information Value Date Recorded Sex Assigned at Not on file Gender Identity Male 10/19/2019 16:22 EDT Sexual Orientation Not on file Plan of Treatment Not on file Care Teams Ex Chef Relationship Specialty Start Date End Date Jenniffer Gill, ALLEN [address] [place] [id number] PCP - General 03/13/20
--- OUTSIDE RECORDS SUMMARY | 2024-03-02 01:16 | XMS_ITS | Encounter Summary ---
Author Organization [facility] Address [address] [place] [address] Care Team Providers Care Director Of Construction Name Role Phone Inderjit Kline MD Primary Care Provider [phone] Jenniffer Gill NP Primary Care Provider [phone] Encounter Details Date Type Department Care Team (Late st Contact Info) Description 02/22/2020 Lab Requisition [facility] Pathology & Laboratory Medicine - [address] [id number] Outr Resulting Lab, Provider Social History Tobacco Use Types Packs/Day Years Used Date Smoking Tobacco: Never Assessed Sex and Gender Information Value Date Recorded Sex Assigned at Not on file Gender Identity Male 10/19/2019 16:22 EDT Sexual Orientation Not on file documented as of this encounter Plan of Treatment Not on file documented as of this encounter Procedures Procedure Name Priority Date/Time Associated Diagnosis Comments PSA TOTAL, DIAGNOSTIC Routine 02/21/2020 9:40 EDT documented in this encounter Results * PSA TOTAL, DIAGNOSTIC (02/21/2020 9:40 EDT) PSA 0.6 0.0 - 3.5 ng/mL 02/22/2020 17:34 EDT [facility] Blood VENOUS BLOOD / Unknown 02/21/2020 9:40 EDT 02/22/2020 16:02 EDT Narrative [facility] - 02/22/2020 17:34 EDT NOTE: Serum PSA concentration should not be interpreted as absolute evidence for the presence or absence of malignant disease. Assayed on Siemens ADVIA Centaur XPT using chemiluminescent technology.??Values obtained by using different assay methods cannot be used interchangeably. Provider Outr Resulting Lab CHEMISTRY & BLOOD GAS ORDERABLES [facility] [address] [place] [address] documented in this encounter Visit Diagnoses Not on filedocumented in this encounter Care Teams Director Of Construction Relationship Specialty Start Date End Date Inderjit Kline MD [address] [place] [address] PCP - General 05/20/15 03/12/20 Jenniffer Gill, ALLEN [address] [place] [address] PCP - General 03/13/20 documented as of this encounter
--- OUTSIDE RECORDS SUMMARY | 2024-03-02 01:17 | XMS_ITS | Encounter Summary ---
Author Organization [facility] Address [address] [place] [address] Care Team Providers Care Radio Disc Jockey Name Role Phone Inderjit Kline MD Primary Care Provider [phone] Encounter Details Date Type Department Care Team (Late st Contact Info) Description 08/22/2016 Historical Results Only [facility] - Main [address] [address] Libertad Gibbs MD [address] [place] [phone] Social History Tobacco Use Types Packs/Day Years Used Date Smoking Tobacco: Never Assessed Sex and Gender Information Value Date Recorded Sex Assigned at Not on file Gender Identity Male 10/19/2019 16:22 EDT Sexual Orientation Not on file documented as of this encounter Plan of Treatment Not on file documented as of this encounter Procedures Procedure Name Priority Date/Time Associated Diagnosis Comments COMPREHENSIVE METABOLIC POC - [facility] Routine 08/22/2016 15:55 EST documented in this encounter Results * (ABNORMAL) COMPREHENSIVE METABOLIC POC - [facility] (08/22/2016 15:55 EST) Albumin % 4.3 3.50 - 5.00 G/DL 08/22/2016 15:57 EST [facility] ALKALINE PHOSPHATASE - [facility] 59 38.00 - 126.00 U/L 08/22/2016 15:57 [facility] BILIRUBIN TOTAL 0.9 0.20 - 1.30 MG/DL 08/22/2016 15:57 [facility] BUN - [facility] 21(H) 7.00 - 20.00 MG/DL 08/22/2016 15:57 [facility] CALCIUM - [facility] 9.0 8.50 - 10.50 MG/DL 08/22/2016 15:57 [facility] Chloride 102 98.00 - 107.00 MMOL/L 08/22/2016 15:57 [facility] CO2 Total 25 22.00 - 30.00 MMOL/L 08/22/2016 15:57 [facility] CREATININE 1.1 0.70 - 1.50 MG/DL 08/22/2016 15:57 [facility] Anion Gap 13 7 - 17 08/22/2016 15:57 [facility] GLUCOSE - [facility] 107(H) 70.00 - 100.00 MG/DL 08/22/2016 15:57 [facility] Potassium 4.3 3.50 - 5.10 MMOL/L 08/22/2016 15:57 [facility] Sodium 140 137.00 - 145.00 MMOL/L 08/22/2016 15:57 [facility] TOTAL PROTEIN - [facility] 7.2 6.30 - 8.20 G/DL 08/22/2016 15:57 [facility] SGOT/AST - [facility] 35 15.00 - 46.00 U/L 08/22/2016 15:57 [facility] SGPT/ALT - [facility] 54 13.00 - 69.00 U/L 08/22/2016 15:57 [facility] 08/22/2016 15:5 5 EST 08/22/2016 15:55 EST Libertad Gibbs MD CHEMISTRY & BLOOD GA S ORDERABLES [facility] documented in this encounter Visit Diagnoses Not on filedocumented in this encounter Care Teams Radio Disc Jockey Relationship Specialty Start Date End Date Inderjit Kline MD [address] [place] [phone] PCP - General 05/20/15 03/12/20 documented as of this encounter
--- NOTE | 2024-03-02 14:30 | DI.MRI_ITS ---
Exam(s) MR UPPER JOINT RT WO EXAM: MR UPPER JOINT RT WO CLINICAL HISTORY: PAIN,RT ROTATOR CUFF TEAR,M75.101. TECHNIQUE: Multiplanar multisequence MRI was performed. COMPARISON: Plain films 11 February 2024 FINDINGS: BONES: There is no fracture or contusion pattern. Degenerative signal changes in the glenoid, great er inferiorly. JOINTS:The acromioclavicular joint shows prominent spurring. There is also fluid in the AC joint. T he glenohumeral joint shows a large effusion. There is cartilage thinning. TENDONS: Supraspinatus: On full-thickness tear with retraction to the level of the AC joint. Fluid seen is se en tracking along the supraspinatus muscle. Infraspinatus: Unremarkable. Subscapularis: Full-thickness tear with retraction to the level of the glenoid. Fluid seen in ext ex tending along the subscapularis muscle. Other loculated fluid collections also present. Teres Minor: Unremarkable. Biceps and [place]: Long head of the biceps tendon is not seen superiorly, consistent with tear and re traction. GLENOID LABRUM: Unremarkable on this noncontrast examination. IMPRESSION: Full-thickness tears with retraction of the supraspinatus, subscapularis and biceps tendons. There i s abnormal muscle signal and fluid collections within the supraspinatus and subscapularis. DATA REPOSITORY:
== END 2024-03-02 01:33 ==
LOC: DI 01:13
PROVIDERS: PCP Nurse Practitioner Family; Visit Provider Student in an Organized Health Care Education/Training Program
DX: M75.121 Complete rotator cuff tear or rupture of right shoulder, not specified as traumatic (principal)
CPT/HCPCS: 73221

== ENCOUNTER 2024-03-24 14:58 | Outpatient (CLI) | payer OTHER, SELFPAY ==
--- NOTE | 2024-03-24 14:45 | RT.EKG_ITS ---
APPROVED REPORT Exam: Resting ECG Reason for Exam: Tachycardia Patient Location: O HR:95 bpm ECG Measurements Heart Rate 95 AXIS FL 156 P 47 QRSd 104 QRS 4 QT 334 T 4 QTc 420 Conclusion Sinus rhythm...normal P axis, V-rate 50- 99 Normal Electrocardiogram
== END 2024-03-24 14:59 | disposition home or self-care (01) ==
LOC: DI.KIM 14:58
PROVIDERS: PCP Nurse Practitioner Family; Visit Provider Nurse Practitioner Family
DX: R00.0 Tachycardia, unspecified (principal)
CPT/HCPCS: 93010

== ENCOUNTER 2024-04-13 03:30 | Outpatient (CLI) | payer OTHER, SELFPAY ==
[2024-04-13 07:58] LABS: HGB 14.3 g/dL (13.5-17.5); MCH 32.4 pg (27.0-33.0); MCHC 33.3 % (32.0-36.0); MCV 97 fL (80-95); MPV 10.5 fL (8.0-11.0); Platelet Count 154 10^3/uL (130-400); RBC 4.42 10^6/uL (4.36-5.78); RDW 12.4 % (11.8-14.1); RDW-SD 44.9 fL; WBC 4.54 10^3/uL (4.4-10.8)
[2024-04-13 08:30] LABS: ALT 33 U/L (16-63); AST 24 U/L (15-37); Albumin 4.1 g/dL (3.4-5.0); Alkaline Phosphatase 66 U/L (46-116); Anion Gap 8.1 mmol/L (3-11); BUN 26 mg/dL (7-18); Bilirubin, Total 0.57 mg/dL (0.2-1.0); CO2 26.9 mmol/L (21.0-32.0); CREATININE 1.2 mg/dL (0.70-1.30); Calcium 8.9 mg/dL (8.5-10.1); Chloride 102 mmol/L (98-107); Estimated GFR 68.38 (mL/min/1.73m2); Glucose 114 mg/dL (74-106); Sodium 137 mmol/L (136-145); TSH (W/Ref FT4) 2.98 uIU/mL (0.36-3.74); Total Protein 7.5 g/dL (6.4-8.2)
[2024-04-13 08:52] LABS: Calculated LDL 125 mg/dL (<100); Cholesterol 203 mg/dL (<200); HDL Cholesterol 63 mg/dL (40-60); Triglyceride 76 mg/dL (<150)
[2024-04-13 09:11] LABS: Hemoglobin A1C 5.7 % (<5.7)
== END 2024-04-13 03:31 | disposition home or self-care (01) ==
LOC: LBO 03:31
PROVIDERS: PCP Nurse Practitioner Family; Visit Provider Nurse Practitioner Family
DX: R00.0 Tachycardia, unspecified (principal); E66.9 Obesity, unspecified; E78.00 Pure hypercholesterolemia, unspecified; R73.03 Prediabetes
CPT/HCPCS: 36415; 80053; 80061; 85027; 83036; 84443

== ENCOUNTER 2024-08-31 01:31 | Outpatient (CLI) | payer OTHER, SELFPAY ==
--- NOTE | 2024-08-31 06:45 | DI.RAD_ITS ---
Exam(s) XR HIP LT COMPLETE AP PELVIS EXAM: XR HIP LT COMPLETE AP PELVIS CLINICAL HISTORY: left hip pain,M25.552. TECHNIQUE: 2D digital imaging was performed of the left hip. Two views were obtained. AP pelvis an d lateral left hip views were obtained. COMPARISON: CR PELVIS AP from 06/13/2014 FINDINGS: BONES: No acute fracture is present. No bony destructive lesion is seen. JOINTS: No dislocation present. There is marked narrowing of the superior joint space of the left hip . There is an osteophyte seen in the left femoral head. The sacroiliac joints and symphysis pubis a re well maintained. SOFT TISSUE: Normal. IMPRESSION: Marked degenerative changes seen in the left hip. The findings have slightly progressed since the ex amination. DATA REPOSITORY: RADIATION DOSE DELIVERED:
--- NOTE | 2024-08-31 06:45 | DI.RAD_ITS ---
Exam(s) XR LUMBAR SPINE COMPLETE EXAM: XR LUMBAR SPINE COMPLETE CLINICAL HISTORY: low back pain,M54.50. TECHNIQUE: 2D digital imaging was performed of the lumbar spine. Five images were obtained. AP, la teral, right oblique, left oblique and L5-S1 spot views were obtained. COMPARISON: No exams were available for comparison FINDINGS: BONES: No fracture or destructive lesion. Endplate osteophytes are seen at L3-L4. No facet hypertroph y identified. DISKS: Intervertebral disc spaces are maintained. ALIGNMENT: Lumbar spinal alignment is within normal limits. No spondylolysis or spondylolisthesis. SOFT TISSUE: Normal. IMPRESSION: Mild degenerative changes seen in the lumbar spine. DATA REPOSITORY: RADIATION DOSE DELIVERED:
== END 2024-08-31 01:51 ==
LOC: DI 01:31
PROVIDERS: PCP Nurse Practitioner Family; Visit Provider Nurse Practitioner Family
DX: M51.360 Other intervertebral disc degeneration, lumbar region with discogenic back pain only (principal); M25.552 Pain in left hip
CPT/HCPCS: 72110; 73502

== ENCOUNTER 2025-01-18 05:40 | Outpatient (CLI) | payer OTHER, SELFPAY ==
--- NOTE | 2025-01-18 05:30 | RT.EKG_ITS ---
APPROVED REPORT Exam: Resting ECG Reason for Exam: preop Patient Location: O HR:94 bpm ECG Measurements Heart Rate 94 AXIS ME 158 P 50 QRSd 100 QRS 4 QT 354 T -1 QTc 443 Conclusion Sinus rhythm...normal P axis, V-rate 50- 99 Probable left atrial enlargement...P >50mS, <-0.10mV V1
== END 2025-01-18 05:41 | disposition home or self-care (01) ==
LOC: DI.KIM 05:41
PROVIDERS: PCP Nurse Practitioner Family; Visit Provider Nurse Practitioner Family
DX: Z01.818 Encounter for other preprocedural examination (principal); I51.7 Cardiomegaly
CPT/HCPCS: 93010

== ENCOUNTER 2025-01-31 08:30 | Outpatient (CLI) | payer OTHER, SELFPAY ==
--- NOTE | 2025-01-31 08:31 | DI.RAD_ITS ---
Exam(s) XR PELVIS AP EXAM: XR PELVIS AP CLINICAL HISTORY: PRE OP BEBO. TECHNIQUE: 2D digital imaging was performed. Single AP view with template ball. COMPARISON: CR PELVIS AP from 06/13/2014 CR XR HIP LT COMPLETE AP PELVIS from 08/31/2024 FINDINGS: BONES: No acute fracture is present. No bony destructive lesion is seen. JOINTS: No dislocation present. There is severe narrowing of the left hip joint space. There is periarticular spurring and subchondral cyst formation. There is moderate narrowing of the right hip joint space. Subchondral cysts are noted in the acetabulum. SI joints are unremarkable. SOFT TISSUE: Normal. IMPRESSION: Severe degenerative changes of the left hip. DATA REPOSITORY: RADIATION DOSE DELIVERED:
== END 2025-01-31 08:31 | disposition home or self-care (01) ==
LOC: DIORS 08:30
PROVIDERS: PCP Nurse Practitioner Family; Visit Provider Physician Assistant
DX: Z01.818 Encounter for other preprocedural examination (principal); M16.12 Unilateral primary osteoarthritis, left hip
CPT/HCPCS: 72170

== ENCOUNTER 2025-01-31 15:33 | Outpatient (REF) | payer OTHER, SELFPAY ==
[2025-01-31 11:34] LABS: HCT 41.0 % (40.0-50.0); HGB 14.2 g/dL (13.5-17.5); MCH 33.8 pg (27.0-33.0); MCHC 34.6 % (32.0-36.0); MCV 98 fL (80-95); MPV 11.5 fL (8.0-11.0); Platelet Count 146 10^3/uL (130-400); RBC 4.20 10^6/uL (4.36-5.78); RDW 12.0 % (11.8-14.1); RDW-SD 43.3 fL; WBC 4.09 10^3/uL (4.4-10.8)
[2025-01-31 11:41] LABS: Anion Gap 7.2 mmol/L (3-11); BUN 24 mg/dL (7-18); CO2 28.8 mmol/L (21.0-32.0); Calcium 9.5 mg/dL (8.5-10.1); Chloride 102 mmol/L (98-107); Estimated GFR 75.43 (mL/min/1.73m2); Glucose 118 mg/dL (74-106); Potassium 4.2 mmol/L (3.5-5.1); Sodium 138 mmol/L (136-145)
== END 2025-01-31 15:34 | disposition home or self-care (01) ==
LOC: LBN 15:33
PROVIDERS: PCP Nurse Practitioner Family; Visit Provider Student in an Organized Health Care Education/Training Program
DX: M16.12 Unilateral primary osteoarthritis, left hip (principal); Z01.818 Encounter for other preprocedural examination
CPT/HCPCS: 80048; 85027

== ENCOUNTER 2025-02-08 08:24 | Day surgery (SDC) | payer OTHER, SELFPAY ==
[2025-02-08] VITALS (30 sets, daily range): BP systolic 124–190; BP diastolic 78–118; PULSE 53–87; RESP 12–31; TEMP 34.4–36.7; O2SAT 92–98; BMI 34.2
--- NOTE | 2025-02-08 07:18 | W.PM.DSUDISC ---
Date of service: 02/08/25 Discharge Plan Disposition Patient Disposition: Home Condition: Good Discharge Details Reason For Visit: L THR Attending Provider: Maximiliano New Primary Care Provider: Jenniffer Gill Home Meds and New Rx's Prescriptions: New celecoxib 200 mg capsule 200 mg PO BID Qty: 60 0RF aspirin 81 mg tablet,delayed release (DR/EC) 81 mg PO BID Qty: 60 0RF acetaminophen 500 mg tablet 1,000 mg PO TID Qty: 90 3RF pantoprazole 40 mg tablet,delayed release (DR/EC) 40 mg PO DAILY Qty: 14 0RF dexamethasone 4 mg tablet 4 mg PO DAILY Qty: 2 0RF docusate sodium 100 mg capsule 100 mg PO BID PRNQty: 28 0RF oxycodone 5 mg tablet 5 mg PO Q4H MDD 6 tabs PRN (Reason: pain) Qty: 12 0RF Continued lisinopril-hydrochlorothiazide 20-12.5 mg tablet 1 tab PO DAILY Qty: 90 3RF fluticasone propionate 50 mcg/actuation spray,suspension 1 spray intranasal DAILY Qty: 16 0RF Patient Comments: pt reports in spring mostly Rx Instructions: administer into each nostril sildenafil 100 mg tablet 100 mg PO DAILY PRN (Reason: sexual activity) Qty: 90 3RF Rx Instructions: administer 30 minutes to 4 hours before activity brimonidine [Alphagan P] 0.1 % drops 1 drp ophthalmic (eye) BID Patient Comments: INSTILL 1 DROP INTO BOTH EYES TWICE A DAY Lumigan 0.01 % drops 1 drp ophthalmic (eye) DAILY Discharge Instructions Additional Instructions: Total Hip Discharge Instructions Activity: The most important activity is to walk. You should try to take short walks a few times a day. You have no restrictions on movement or positioning, but do not try to force what you do. You will find some stiffness and weakness with hip flexion (lifting your knee). Do not try to strengthen this too early, continue to practice walking and stairs and this will come. - Outpatient physical therapy can be helpful to help return you to a normal gait and improve your flexibility and strength. This can start around 2 weeks. For some patients, it?s not necessary. Usually this is determined at the time of discharge or at the first post-operative visit. - You should wear the LETTY hose on both legs for 2 weeks. Dressing: Keep the surgical dressing in place for at least one week. After the first week it may be removed and replace with light gauze and tape or nothing. It may get wet after 3 days but avoid soaking the dressing. If it gets wet, just lightly pat dry. It is important to always keep some gauze between skin folds, especially when you are sitting. Spend some time with the wound exposed when you are lying flat as the incision does wrinkle onto itself. Medications: - You should take Tylenol and an anti-inflammatory Celebrex as your primary pain control medications. If the Celebrex is too expensive or not covered, please call the office for another alternative (Advil/Ibuprofen or Naproxen/Aleve). - You have been prescribed a stronger pain medication Oxycodone for breakthrough pain, take as needed as prescribed. - You have also been prescribed a stomach acid reduction agent Pantoprozole to help reduce stomach acid and reflux. - You have also been prescribed Decadron to help with post-operative nausea and pain. You will take this for two days starting tomorrow. - You will be taking Aspirin 81mg twice a day for DVT prevention unless instructed otherwise. - If you have constipation you should take Colace or Miralax (both [id number]). It takes most people 3-4 days to have a bowel movement. Follow-up: 2 weeks If you have any acute concerns or questions, please do not hesitate to contact the office at [phone]. You may contact Dr. New with any questions after hours through the hospital at [phone] or on his cell phone at [phone]. Stand Alone Forms: Anesthesia Discharge InstYaya, Rafael Oropeza ([facility]) Referrals: Maximiliano New MD [ [facility] STAFF PHYSICIAN, Orthopaedic Surgical] - 02/21/25 8:30 am Equipment/Supplies: Walker Activity:: Activity as Tolerated Shower/Bathe:: 72 hours Diet:: As Tolerated Discharge Orders Discharge Orders: Discharge Order (Routine); Ordered 02/08/25 Ordered By: Dale Stafford DS: Diagnosis Discharge Diagnosis (1) Degenerative joint disease of left hip: Status: Chronic
[2025-02-08] MEDS: Celecoxib 200 MG CAP 400 MG PO (09:03)
[2025-02-08] MEDS: Acetaminophen 500 MG TAB 1000 MG PO (09:03)
[2025-02-08] MEDS: Lactated Ringers 1,000 ML 80 ML IV (09:20)
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
--- NOTE | 2025-02-08 09:30 | DI.RAD_ITS ---
Exam(s) XR HIP LT IN OR EXAM: XR HIP LT IN OR CLINICAL HISTORY: degenerative joint disease left hip. TECHNIQUE: 2D and realtime digital imaging was performed. COMPARISON: CR XR PELVIS AP from 01/31/2025 FINDINGS: Hard copy images show placement of a left hip prosthesis. The alignment appears satisfactory. Please see procedure note for details. Fluoro time: 39.0seconds RADIATION DOSE DELIVERED: Ka,r=5.1 mGy
[2025-02-08] MEDS: ceFAZolin 2 GM/50 ML BAG IVPB (10:31)
[2025-02-08] MEDS: TRANEXAMIC ACID/SOD. CHL. 1,000 MG/100 ML BAG 600 MG IVPB (10:45)
--- NOTE | 2025-02-08 12:16 | ROE_ITS ---
Operative Note Operative Note PRE-OP DIAGNOSIS: Left Hip Osteoarthritis POST-OP DIAGNOSIS: same PROCEDURE: Left Anterior Total Hip Arthroplasty with Intraoperative Navigation SURGEON: Maximiliano New SALES COORDINATOR: Dale Stafford ANESTHESIA TYPE: Spinal Refer to Anesthesia Record ESTIMATED BLOOD LOSS: 400 PATHOLOGY: none sent TOURNIQUET TIME: 0 COMPLICATIONS: None Patient was transported to: PACU Patient's condition: stable Implants: 1. Depuy Paoli Acetabular Component, 54mm 2. Depuy Acetabular Liner, [id number] 3. Depuy Actis High Offset Collared Femoral Stem, Size 3 4. Depuy Altrx Ceramic Femoral Head, Size 36+1.5mm Indications: I have seen Sanchez in clinic for symptoms of hip arthritis, confirmed with radiographic findings. He has exhausted nonoperative methods and was having significant limitations in daily function and desired better function and less pain. I discussed the technical details of a hip replacement. I explained the risks of the procedure to include, but not limited to, bleeding, infection, pain, stiffness, fracture, damage to nerves and vessels, damage to muscles and tendons, loosening, instability, leg length inequality, need for repeat procedure, blood clot and cardiopulmonary demise. Despite these risks, Sanchez elected to proceed. Findings: There was significant signs of arthritis throughout the hip. Procedure Description: Sanchez was greeted in the preoperative holding area where the correct side was identified and marked. The consent was reviewed with the patient and signed. The history and physical was updated. All questions were answered. He was taken back to the operating room. A spinal anesthestic was then administered. The feet were wrapped with cast padding and Coban and then placed into the boot liners and then into the boots. Care was taken to protect the skin and make sure the heels were fully down and the boots were stable. The patient was then positioned onto the HANA table. Both legs were held in a neutral position. SCDs were applied. The patient was then slid down onto a peroneal post. Prophylactic antibiotics in the form of Cefazolin were administered. 1g of Tranxemic Acid was given intravenously within 30 minutes of incision. The left leg was then prepped with Chloraprep and draped in a standard fashion. A second prep with Chloraprep was performed prior to placement of a shower-curtain type drape with Iodine impregnated skin protection . A timeout to confirm correct identity, side and site, procedure, allergies, anesthesia, and medical concerns was performed. An obliquely oriented incision was made starting lateral to the ASIS and running distal over the Tensor Fascia Kristin (TFL) muscle belly toward the fibular head, approximately 10cm. The skin and soft tissue was dissected sharply, through Steve?s fascia, and to the fascia of the TFL. With the fascia and superior border of the IT band identified, the fascia was incised with a new knife just above any perforators from the IT band. The TFL muscle belly was bluntly disse cted away from the fascia and moved laterally. The fat between TFL and rectus was identified to ensure the dissection was not within the TFL. Blunt dissection created space between abductors and the capsule and retractor was placed over the lateral femoral neck. The fibers of the rectus femoris tendon were identified and these were freed from the anterior capsule. A second cobra retractor was placed around the medial femoral neck. The TFL was further retracted laterally to show the deep fascia. Careful dissection through this layer identified three main crossing vessels of the lateral femoral circumflex. These were cauterized in multiple locations and then cut without any noticeable bleeding. The TFL was further released bluntly from the deep fascia to expose anterior hip capsule and fat The soft tissue orthopaedic retractor was then placed beneath the TFL and against sartorius and medial soft tissues to protect and retract the soft tissues. A T-capsulotomy was then performed starting at the superior lateral acetabulum and moving distally to the intertrochanteric ridge. These capsular flaps were tagged with a No. 1 Vicryl and elevated from within. The capsular flaps were released to the shoulder of the lateral neck and to the lesser trochanter to give excellent visualization of the proximal femur. A neck osteotomy was performed using an oscillating saw based on preoperative templates. This cut started in the shoulder and of the lateral neck and exited medially. The saw was at all times directed medially to avoid injury to the greater trochanter. Gross traction was applied to the leg and the osteotomy opened. The femoral head was removed with a corkscrew, making sure to protect the TFL on its exit. Traction was released after head removal. This was m easured on the back table to determine the starting reamer size. Portions of the rectus obscuring visualization were minimally elevated off the superior acetabulum. An anterior retractor was placed over the anterior wall between capsule and labrum and attached to the Gripper retraction system. The femur was rotated to 90 degrees and medial capsule was fully released until the lesser trochanter was palpable and visible; the femur was returned to 30 degrees. A posterior retractor was placed similarly between capsule and labrum. This provided excellent visualization. The contents of the cotyloid fossa were removed with electrocautery and the labrum was removed with a knife. There was a notable floor osteophyte. There was significant chondromalacia of the superior acetabulum. Acetabular reaming began with a 49mm reamer. This first reaming was directed anterior to posterior and medial to get down to the true floor. This was inspected and reamed until the true floor was reached. The anterior retractor was then released and entry and exit was provided by traction on the capsular flaps. I then reamed sequentially up to a 54mm reamer where good fit was obtained. The larger reamers were oriented based on anatomical reference of the anterior and lateral perrin to ensure proper abduction and anteversion. Positioning and size was confirmed with the fluoroscopy. A 54mm Depuy Paoli acetabular component was selected. The deep tissues were irrigated. The acetabular component was then impacted in a position of about 40-45 degrees of abduction and 15-20 degrees of anteversion, using the patient?s anatomy as the ultimate landmark. Fluoroscopy was used to confirm this. There was excellent test kitchen home economist of the acetabular component and the inserting handle was removed. The acetabular liner, Depuy [id number] polyethylene liner, was inserted and lined up with the tines of the acetabular component. There was no soft tissue interposition. The liner was then impacted into position and confirmed to be well-seated. A portion of the christine-articular cocktail was then injected around the acetabulum into the capsule and periosteum. This cocktail consisted of 123mg of Ropivacaine, 0.25mg of Epinephrine, 0.04mg of Clonidine, and 15mg of Ketorolac, diluted to 50cc. The leg was rotated to 120 degrees. Any remaining medial capsule was released until the lesser trochanter was easily palpable. A retractor was placed medially. The lateral capsule was further released into the shoulder to allow access to the greater trochanter. A Jensen retractor was placed over the gre ater trochanter which allowed the trochanter to flip in front of the capsule for excellent exposure. The leg was brought down into maximal extension and 20 degrees of adduction while ensuring there was no impingement on the acetabulum. Any remnant capsule within the trochanter was released. Piriformis and obturator externis were identified and protected. There was excellent access to the proximal femur. The lateral neck remnant was removed with a rongeur. A blunt canal probe was used to identify the canal and trajectory for later broaching. A box osteotome initiated the broach course. A small curved rasp and a curved curette were used to work laterally. Broaching then began with a starter Actis broach. This was inserted manually around the trochanter and into the canal before mallet blows. The broach was seated to a few millimeters below the cut level based on the neck cut and the preoperative template. Sequential broaching was continued with the [employer] pneumatic broaching device until a tight fit was obtained with good rotational control of the femur. A trial high offset neck was inserted along with a +1.5 trial head. The leg was brought out of extension and adduction and then reduced with traction and internal rotation. The leg was stable anteriorly in a position of 30 degrees of extension and 90 degrees of external rotation. Fluoroscopy was used to ensure there was no fracture and the stem was seated well. Leg lengths were checked with an AP pelvis and pelvic reference points. [employer] navigation system was used to confirm appropriate positioning and leg length and offset. This showed correction of the offset but slight overcorrection of the leg length and thus the broach was advanced 3 to 4 mm. Once content with the desired offset and leg lengths, the leg was brought back into extension, external rotation and adduction. The periosteum and surrounding tissue was injected with remaining portion of the christine-articular cocktail. The proximal femur was irrigated as well as the deep tissues. The Depuy Actis high offset collared stem, size 3, was then manually inserted into the proximal femur making sure to control rotation. It was then malleted into position with light blows, giving breaks to allow bone expansion and decrease risk of fracture. The selected Depuy Altrx Ceramic Head, size 36+1.5mm, was then placed onto the clean and dry trunnion and secured with impaction onto the tapered fit. The leg was brought back out of extension and adduction and reduced with traction and internal rotation. Stability was confirmed with no shuck at 90 degrees of external rotation and 30 degrees of extension. No impingement through range of motion arc. Final x-ray images were obtained with fluoroscopy to confirm adequate positioning and no intraoperative fracture. The deep tissues were thoroughly irrigated with Surgiphor, betadine solution. This was allowed to sit in the wound for 3 minutes before being thoroughly irrigated out with normal saline. The capsule was then reapproximated with the previously placed sutures and the indirect head of the rectus was inspected and reapproximated with a #1 Vicryl. The TFL fascia was finally closed with a No. 2 Stratafix, barbed suture. Deep tissues were then reapproximated with 0 Vicryl and a running 2-0 Vicryl. The skin was closed with a running 4-0 Monocryl in a subcuticular fashion. This was reinforced with skin glue. A Mepilex silver dressing was applied. At the end of the case, all counts were correct. Sanchez was transferred to the hospital bed without difficulty and suffering no apparent complication. He has a good prognosis. Physical therapy will start today and without restrictions, weight-bearing as tolerated. Aspirin 81mg BID will be used for DVT prophylaxis. Date of Procedure: 02/08/25
[2025-02-08] MEDS: fentaNYL 100 MCG/2 ML VIAL IVP ×2 (12:35→12:45)
[2025-02-08] MEDS: HYDROmorphone 2 MG/ML SYR IVP ×2 (12:52→13:05)
--- NOTE | 2025-02-08 14:25 | W.ANESPOSTOP ---
Postoperative Evaluation Date, Time and Location Date Performed: 02/08/25 Time Performed: 14:25 Patient Location: Day Surgery Unit Vital Signs Most Recent Imported Vital Signs: Most Recent Vital Signs Temp Pulse Resp BP Pulse Ox 36.5 C 67 16 152/102 H 94 02/08/25 14:02 02/08/25 14:02 02/08/25 14:02 02/08/25 14:02 02/08/25 14:02 Pain Score Most Recent Pain Score: Most Recent Pain Score Pain Level 5 02/08/25 14:02 Assessment Mental Status: Awake (Alert & Oriented to Patient Baseline) Airway and Respiratory Function: Patent airway with normal (patient baseline) respiratory exam Cardiovascular Function: Hemodynamically Stable Hydration Status: Adequately Hydrated Nausea & Vomiting: No Nausea or Vomiting Pain: Pain is tolerable per patient Peripheral Nerve Block: Patient did not receive a nerve block
[2025-02-08] MEDS: Tranexamic Acid 650 MG TAB 1300 MG PO (14:57)
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
== END 2025-02-08 15:31 | disposition home or self-care (01) ==
LOC: SUR 08:24
PROVIDERS: PCP Nurse Practitioner Family; Visit Provider Student in an Organized Health Care Education/Training Program
PROC: (CPT 27130; principal; 2025-02-08 11:15)
DX: M16.12 Unilateral primary osteoarthritis, left hip (principal)
CPT/HCPCS: 27130; 20985; 97161; 97530; 73501; C1776; J0690; J1100; J1171; J2003; J2250; J2371; J2401; J2405; J2704; J3010

== ENCOUNTER 2025-02-21 09:59 | Outpatient (CLI) | payer OTHER, SELFPAY ==
--- NOTE | 2025-02-21 08:15 | DI.RAD_ITS ---
Exam(s) XR HIP LT COMPLETE AP PELVIS EXAM: XR HIP LT COMPLETE AP PELVIS INDICATION: 1ST POST OP S/P L BEBO. COMPARISON: CR XR PELVIS AP from 01/31/2025 XA XR HIP LT IN OR from 02/08/2025 TECHNIQUE: 2D digital imaging was performed. Two views. FINDINGS: Stable alignment left hip prosthesis. No abnormal surrounding bony lucencies. Moderate degenerative changes are again noted in the right hip. DATA REPOSITORY: RADIATION DOSE DELIVERED:
== END 2025-02-21 10:00 | disposition home or self-care (01) ==
LOC: DIORS 09:59
PROVIDERS: PCP Nurse Practitioner Family; Visit Provider Student in an Organized Health Care Education/Training Program
DX: Z96.642 Presence of left artificial hip joint (principal); M16.11 Unilateral primary osteoarthritis, right hip
CPT/HCPCS: 73502

== ENCOUNTER 2025-04-19 01:32 | Outpatient (CLI) | payer OTHER, SELFPAY ==
[2025-04-19 07:54] LABS: Hemoglobin A1C 5.1 % (<5.7)
[2025-04-19 08:10] LABS: Anion Gap 11.1 mmol/L (3-11); BUN 21 mg/dL (7-18); CO2 25.9 mmol/L (21.0-32.0); Calcium 9.1 mg/dL (8.5-10.1); Calculated LDL 139 mg/dL (<100); Chloride 102 mmol/L (98-107); Cholesterol 215 mg/dL (<200); Estimated GFR 67.95 (mL/min/1.73m2); Glucose 99 mg/dL (74-106); HDL Cholesterol 49 mg/dL (>or=40); Potassium 3.8 mmol/L (3.5-5.1); Sodium 139 mmol/L (136-145); Triglyceride 139 mg/dL (<150)
== END 2025-04-19 01:33 | disposition home or self-care (01) ==
LOC: LBO 01:33
PROVIDERS: PCP Nurse Practitioner Family; Referring Provider Nurse Practitioner Family; Visit Provider Nurse Practitioner Family
DX: Z00.00 Encounter for general adult medical examination without abnormal findings (principal); E66.9 Obesity, unspecified; I10 Essential (primary) hypertension
CPT/HCPCS: 36415; 80048; 80061; 83036